=== PATIENT | female | born 1950 | race Caucasian/White ===

== ENCOUNTER 2017-03-08 12:16 | Observation (INO) | payer MEDICARE ==
[~2017-03-08] VITALS: Ht 157.5 cm; Wt 103.8 kg
--- NOTE | ~2017-03-08 | ST ---
PATIENT:BEL CANTU MEDICAL RECORD: [id number] SEX: F LOCATION:[address] ORDER #: ADMISSION DATE: 03/08/17 AGE OF PATIENT: 67 REFERRING PHYSICIAN: INTERPRETING PHYSICIAN: SRUTHI REILLY MD DATE OF SERVICE: 03/09/2017 PROCEDURE: Lexiscan nuclear stress test. INDICATIONS: Chest pain. DESCRIPTION OF PROCEDURE: The patient was brought into the nuclear lab where she was placed in supine position on the nuclear stress table. The patient then had a Lexiscan stress test administered via standard protocol. The patient was monitored appropriately, had no significant tachycardia or dysrhythmias during the test or after. The patient had no complaints of shortness of breath or chest pain. The patient completed the protocol. Nuclear infusion: The rest and stress test were done on the same day, she had 8.5 mCi sestamibi injected at rest and then 25.9 mCi sestamibi injected at stress. The SPECT imaging showed no significant areas of ischemia. Gated imaging revealed preserved left ventricular systolic function, ejection fraction 65%. IMPRESSION: This is a normal stress test with no evidence of significant ischemia. RECOMMENDATIONS: Continue medical management and aggressive secondary risk factor modification. If clinical symptoms persist, it may be reasonable to go further with the evaluation if no further explanations. TRANSINT:[id number] Voice Confirmation ID: [id number] DOCUMENT ID: [id number] 03/20/2017 Edited to correct date of service, dm. SRUTHI REILLY MD at 1353 CC: [id number] DICTATION DATE: 03/10/17 0743 SILVICULTURE PROFESSOR: 03/10/17 1401 DIS IN 03/09/17 [place] [place] [address]
--- NOTE | ~2017-03-08 | HP ---
PATIENT: BEL CANTU MEDICAL RECORD: [id number] ACCOUNT: [id number] LOCATION:[facility].2104 : 50 ADMISSION DATE: 03/08/17 HISTORY AND PHYSICAL EXAMINATION ADMITTING PHYSICIAN: Dr. Jesus Crowder. REASON FOR ADMISSION: Chest pain. HISTORY OF PRESENT ILLNESS: The patient is a 67-year-old obese female with history of hypertension and fibromyalgia. The patient states that she has been having trouble with fast and slow heart rates off and on for 5 years, but has never been "captured on the EKG." She did have an echo in 2015 that showed right atrial enlargement, but normal left atrial size and normal EF. She noticed Sunday evening from 5 until 9 p.m., she had some substernal chest discomfort. It did not radiate, was not associated with nausea, vomiting and diaphoresis and then went away. She simply took a Tylenol and she said they got better. She had an episode on Sunday and Sunday as well, lasting several hours and resolving. She came in today because she felt like she was flushed and she had more chest discomfort. She was evaluated by Dr. Farmer, who noticed she was quite hypertensive when she arrived with a blood pressure of 225/104 and rate of 114. She was in atrial fibrillation with uncontrolled rate. She did convert and when she did, she became bradycardic in the 40s and her blood pressure improved. Because of concern for tachybrady syndrome, the patient has now been admitted for further evaluation and control of her blood pressure. She also states since Thanksgiving 3 weeks ago, she has had some cough and congestion that has been nonproductive. She denies fever. PAST MEDICAL HISTORY: Essential hypertension, obesity, fibromyalgia. She had a TIA in 2014 with negative workup. That was a left MCA distribution. She was placed on Plavix at that time. She had an MRI on 10/18/2015 showing generalized atrophy, small vessel ischemic disease. History of muscle contraction headaches, lumbar radiculopathy on the right, possible peripheral neuropathy, hypothyroidism, depression. PAST SURGICAL HISTORY: She has had a laparoscopic cholecystectomy, SUNIL-BSO. ALLERGIES: GADOLINIUM, IODINE, PENICILLIN. FAMILY HISTORY: Father at 80 of lung cancer. He was a smoker and drinker. Mother at 77 from diabetes, hypothyroidism and hypertension. She has no siblings. MEDICATIONS: Her home medications are levothyroxine 0.112 mcg p.o. q.a.m., losartan 100 mg daily, ibuprofen 800 mg b.i.d. p.r.n. muscle pain, Cartia XT 120 mg p.o. daily, potassium chloride ER 8 mEq p.o. daily, Dulera 100 mcg HFA 2 puffs twice daily, clopidogrel 75 mg p.o. daily, and hydrochlorothiazide 12.5 mg p.o. daily. REVIEW OF SYSTEMS: GENERAL: She has been fatigued without fever. HEENT: No recent visual change, sinus congestion, or sore throat. She hears well. RESPIRATORY: She has had intermittent dry cough for 3 weeks that has been nonproductive. She denies hemoptysis. HISTORY AND PHYSICAL [id number] BEL CANTU CARDIAC: She has had substernal chest pain at rest, lasting several hours a day for the last 3 days. Associated with flushing of her cheeks, but no radicular pain, nausea or vomiting. GASTROINTESTINAL: No nausea, vomiting, change in stools or blood per rectum. GENITOURINARY: No dysuria or incontinence. GYNECOLOGIC: No vaginal bleeding. MUSCULOSKELETAL: She says she has generalized muscle pain, considered to be fibromyalgia type. She also had a history of lumbago with right-sided sciatica. INTEGUMENT: No rash or itching. PSYCHIATRIC: Admits to depressed mood intermittently, but no suicidal thoughts. PHYSICAL EXAMINATION: VITAL SIGNS: Temperature 97.4 Fahrenheit, pulse 114 and irregular, respirations were 19, blood pressure 225/104 initially, she was saturating 95% on room air. After converting to sinus rhythm, rate in the mid 40s and her pressure did improve, 145/71. GENERAL: The patient is alert and oriented and gives a good history. HEENT: Her eyes are clear. Pupils reactive. EOMI. Her face is flushed. NECK: Supple, without bruits or masses. CHEST: Distant breath sounds without wheeze or rales. HEART: Regular rate without MGR. PMI appropriate. BREASTS: Symmetrical. ABDOMEN: Morbidly obese, nontender with healed surgical scars. PELVIC: Deferred. EXTREMITIES: No CC&E. She has crepitation in her right knee to flexion and extension. Gait is normal. NEUROLOGICAL: Oriented to person, place, and time. Cranial nerves grossly intact. Gait normal. Has good memory and recall. LABORATORY DATA: Lab shows a white count of 8100 with H&H of 14 and 42.1, and platelet count of 150,000. D-dimer 0.44. Sodium 144, potassium 3.7, BUN and creatinine are 14 and 0.7, and glucose is 98. Liver functions are normal. Cardiac enzymes are normal. IMAGING STUDIES: Chest x-ray shows no acute process. Initial EKG showed atrial fibrillation with rapid ventricular response, T-wave inversion in lead III and F. No old EKG to compare. ASSESSMENT: 1. Atrial fibrillation with uncontrolled ventricular response. 2. Bradycardia, possible tachybrady syndrome. 3. Chest pain, etiology unknown. 4. Recent URI. 5. Obesity. 6. Hypothyroidism. 7. Fibromyalgia. 8. Uncontrolled hypertension. PLAN: The patient will be admitted for cardiac rehab nurse and recheck thyroid functions, serial cardiac enzymes, echocardiogram and cardiology consultation. TRANSINT:[id number] Voice Confirmation ID: [id number] DOCUMENT ID: [id number] HISTORY AND PHYSICAL [id number] BEL CANTU TIMOTHY MD at 1459 CC: [id number] DICTATION DATE: 03/08/171818 PIANO TECHNICIAN: 03/08/171933 DIS IN 03/09/17 [facility] [address] [place] [address]
--- NOTE | ~2017-03-08 | EC ---
PATIENT:EBL CANTU DATE OF SERVICE: 03/08/17 SEX: F MEDICAL RECORD: [id number] DATE OF : 50 LOCATION:[address] AGE OF PATIENT: 67 ADMISSION DATE: 03/08/17 REFERRING PHYSICIAN: INTERPRETING PHYSICIAN: SRUTHI REILLY MD ECHOCARDIOGRAM REPORT ECHO CHARGES 4 ECHO COMPLETE CLINICAL DIAGNOSIS: AFIB ECHOCARDIOGRAPHIC MEASUREMENTS (adult normal given) AC root (d.<3.7cm) 3.5 cm LV Septum d (<1.2 cm> 1.5 cm Valve Excursion 1.8 cm LV Septum (systole) 2.1 cm Left Atria (s.<4.0cm> 5.1 cm LVPW d(<1.2cm) 1.6 cm RV (d.<2.3cm) 3.9 cm LVPW (sytole) 2.1 cm LV diastole(<5.6CM) 4.7 cm MV E-F(>70mm/sec) cm LV systole 2.2 cm LVOT Diameter 1.6 cm MV exc.(>10mm) 1.5 cm Est.ejection fraction (50-75%) % Pericardial Effusion N DOPPLER: LVIT cm/sec A 78.0 cm/sec E 63.0 cm/sec LA cm/sec RVSP 25 mmHg LVOT 109 cm/sec AOP1/2T m/s Asc. Ao 178 cm/sec RVOT 97 cm/sec RA cm/sec PA 115 cm/sec AV Gradient Peak 12.74mmHg AV Mean 7.16 mmHg AV Area 1.5 cm MV Gradient Peak 4.23 mmHg MV Mean 1.52 mmHg MV Area cm COMMENTS: Campus Interviews Intern: 2 CAROLINA GASPAR Chauffeur: 4 Dr. Reilly TAPE# PACS DATE OF SERVICE: 03/09/2017 PROCEDURE: Transthoracic echocardiogram. FINDINGS: 1. Left ventricle has moderate concentric left ventricular hypertrophy with inflow characteristics consistent with diastolic dysfunction or elevated left ventricular end-diastolic pressures. 2. There is no regional wall motion abnormalities and the function is normal at 60% to 65%. ECHOCARDIOGRAM REPORT [id number] BEL CANTU 3. Left atrium is severely dilated at 5.1 cm. 4. The aortic valve is normal. Function normal structure. 5. The right ventricle has moderate dilatation with normal function. 6. The mitral valve normal function. 7. Tricuspid valve has mild tricuspid regurgitation with normal right ventricular systolic pressures. 8. Pulmonic valve is normal. CONCLUSIONS: The patient has evidence of hypertensive heart disease, diastolic dysfunction, and dilatation of the left atrial chamber as well as the right-sided chambers with no concomitant increase in pulmonary pressures for this evaluation. TRANSINT:[id number] Voice Confirmation ID: [id number] DOCUMENT ID: [id number] SRUTHI REILLY MD at 0722 CC: [id number] DICTATION DATE: 03/09/17 141 ELECTRIC TOOL REPAIRER: 03/09/17 1459 DIS IN 03/09/17 [facility] [address] [place] [address]
[2017-03-08 12:45] LABS: BASOPHILS 0.4 % (0-2); EOSINOPHILS 2.2 % (0-7); HEMATOCRIT 42.1 % (36.0-48.0); IMMATURE GRANULOCYTES 0.1 % (0-5); LYMPHOCYTES 19.8 % (15-50); MCH 30.2 pg (26.0-34.0); MCHC 33.3 g/dL (31.0-37.0); MCV 90.7 fL (80.0-100.0); MEAN PLATELET VOLUME 12.3 fL (7.4-10.4); MONOCYTES 8.2 % (2-11); NEUTROPHILS 69.3 % (40-80); PLATELET COUNT 150 10x3/uL (130-400); RBC 4.64 10x6/uL (4.00-5.40); RDW 14.5 % (11.5-14.5); WBC 8.1 10x3/uL (4.8-10.8)
[2017-03-08 13:06] LABS: ALBUMIN 3.9 g/dL (3.4-5.0); ALKALINE PHOSPHATASE 98 U/L (46-116); ALT (SGPT) 34 U/L (10-68); CALC OSMOLALITY 287 mosm/kg (275-300); CALCIUM 9.7 mg/dL (8.5-10.1); CARBON DIOXIDE 31.4 mmol/L (21.0-32.0); CHLORIDE - SERUM 105 mmol/L (98-107); CREATININE - SERUM 0.7 mg/dL (0.6-1.3); GLUCOSE 98 mg/dL (74-106); POTASSIUM - SERUM 3.7 mmol/L (3.5-5.1); PROTEIN - SERUM 7.4 g/dL (6.4-8.2); SODIUM 144 mmol/L (136-145); UREA NITROGEN 14 mg/dL (7-18); eGFR NON AFRICAN AMERICAN 88 mL/min (90-120)
[2017-03-08 13:17] LABS: CKMB 1.5 U/L (0.0-3.6); CREATINE KINASE 103 UL (21-215)
[2017-03-08 13:22] LABS: TROPONIN-I < 0.017 ng/mL (0.000-0.060)
[2017-03-08] MEDS ORDERED: TIROSINT13 MCG PO (18:16)
[2017-03-08] MEDS ORDERED: PLAVIX75 MG PO (18:17)
[2017-03-08] MEDS ORDERED: COZAAR100 MG PO (18:18)
[2017-03-08] MEDS ORDERED: CARTIA XT120 MG PO (18:19)
[2017-03-08] MEDS ORDERED: KLOR-CON 88 MEQ PO (18:20)
[2017-03-08 19:31] LABS: CKMB 1.4 U/L (0.0-3.6); CREATINE KINASE 40 UL (21-215)
[2017-03-08 19:34] LABS: TROPONIN-I 0.074 ng/mL (0.000-0.060)
[2017-03-08 20:18] VITALS: BP 169/59
[2017-03-09] VITALS (7 sets, daily range): BP systolic 130–180; BP diastolic 57–79; Ht 157.5 cm; Wt 103.8 kg
[2017-03-09 01:06] LABS: CREATINE KINASE 82 UL (21-215)
[2017-03-09 01:19] LABS: TROPONIN-I < 0.017 ng/mL (0.000-0.060)
[2017-03-09 06:24] LABS: CALC OSMOLALITY 281 mosm/kg (275-300); CALCIUM 9.2 mg/dL (8.5-10.1); CARBON DIOXIDE 28.7 mmol/L (21.0-32.0); CHLORIDE - SERUM 105 mmol/L (98-107); CREATINE KINASE 73 UL (21-215); CREATININE - SERUM 0.7 mg/dL (0.6-1.3); GLUCOSE 100 mg/dL (74-106); POTASSIUM - SERUM 3.7 mmol/L (3.5-5.1); SODIUM 141 mmol/L (136-145); T4 THYROXIN - FREE 1.22 ng/dL (0.76-1.46); THYROID STIMULATING HORMONE 0.42 uIU/mL (0.36-3.74); UREA NITROGEN 16 mg/dL (7-18); eGFR NON AFRICAN AMERICAN 88 mL/min (90-120)
[2017-03-09 06:25] LABS: TROPONIN-I < 0.017 ng/mL (0.000-0.060)
[2017-03-09] MEDS ORDERED: NITROQUICK0.4 MG SL (20:58)
== END 2017-03-09 21:26 | disposition home or self-care (01) ==
LOC: D.ER 12:16 → D.M2 16:29 → OBSVTIME 16:29 → D.M2 03-09 21:26
PROVIDERS: Family Medicine
DX: I48.91 Unspecified atrial fibrillation (principal); R07.9 Chest pain, unspecified; E66.01 Morbid (severe) obesity due to excess calories; Z68.41 Body mass index [BMI] 40.0-44.9, adult; I10 Essential (primary) hypertension; Z86.73 Personal history of transient ischemic attack (TIA), and cerebral infarction without residual deficits; E03.9 Hypothyroidism, unspecified; M79.7 Fibromyalgia

== ENCOUNTER 2017-06-29 19:52 | Emergency (ER) | payer MEDICARE ==
[2017-03-09 09:44] VITALS: BMI 42.3
[~2017-06-29 19:52] MED LIST: CARTIA XT120 MG PO; COZAAR100 MG PO; KLOR-CON 88 MEQ PO; NITROQUICK0.4 MG SL; PLAVIX75 MG PO; TIROSINT13 MCG PO
[2017-06-29 20:30] LABS: APPEARANCE CLEAR (CLEAR); BILIRUBIN NEGATIVE (NEGATIVE); COLOR YELLOW (YELLOW); GLUCOSE NEGATIVE (NEGATIVE); KETONE NEGATIVE (NEGATIVE); NITRITE NEGATIVE (NEGATIVE); PROTEIN NEGATIVE (NEGATIVE); UROBILINOGEN NORMAL (NORMAL)
[2017-06-29 20:41] LABS: BASOPHILS 0.5 % (0-2); EOSINOPHILS 2.6 % (0-7); HEMATOCRIT 42.2 % (36.0-48.0); HEMOGLOBIN 13.7 g/dL (12-16); IMMATURE GRANULOCYTES 0.2 % (0-5); LYMPHOCYTES 27.4 % (15-50); MCH 29.8 pg (26.0-34.0); MCHC 32.5 g/dL (31.0-37.0); MCV 91.9 fL (80.0-100.0); MEAN PLATELET VOLUME 13.6 fL (7.4-10.4); MONOCYTES 11.1 % (2-11); NEUTROPHILS 58.2 % (40-80); PLATELET COUNT 160 10x3/uL (130-400); RBC 4.59 10x6/uL (4.00-5.40); RDW 15.1 % (11.5-14.5); WBC 8.5 10x3/uL (4.8-10.8)
[2017-06-29 21:02] LABS: ANION GAP 13.7 mmol/L (8-16); BILIRUBIN - TOTAL 0.46 mg/dL (0.2-1.3); CALCIUM 9.1 mg/dL (8.5-10.1); CARBON DIOXIDE 28.9 mmol/L (21.0-32.0); CREATININE - SERUM 0.9 mg/dL (0.6-1.3); POTASSIUM - SERUM 3.6 mmol/L (3.5-5.1); PROTEIN - SERUM 7.5 g/dL (6.4-8.2)
== END 2017-06-29 22:34 | disposition home or self-care (01) ==
LOC: D.ER 19:52
PROVIDERS: Family Medicine
DX: M51.36 Other intervertebral disc degeneration, lumbar region (principal); M12.89 Other specific arthropathies, not elsewhere classified, multiple sites; M48.36 Traumatic spondylopathy, lumbar region; I10 Essential (primary) hypertension; R00.1 Bradycardia, unspecified

== ENCOUNTER 2017-08-28 13:50 | Observation (INO) | payer MEDICARE ==
[~2017-08-28] VITALS: Ht 157.5 cm; Wt 99.6 kg
--- NOTE | ~2017-08-28 | HP ---
PATIENT: BEL CANTU MEDICAL RECORD: [id number] ACCOUNT: [id number] LOCATION:[address] : 50 ADMISSION DATE: 08/28/17 HISTORY AND PHYSICAL EXAMINATION Admission History And Physical DATE OF ADMISSION: 08/28/2017 CHIEF COMPLAINT: Chest pain. HISTORY OF PRESENT ILLNESS: This is a 67-year-old female with a history of hypertension who had acute onset of chest pain last night, did not radiate to her jaw or either arm. She felt like she "ate a basketball" with the pain described as a pressure. She states she has had trouble with fast and slow heart rates off and on for 5 years, but it has never been captured on EKG." She had a TIA several years ago with negative work. She was found to have atrial fib versus flutter this morning and is now admitted for further evaluation. PAST MEDICAL AND SURGICAL HISTORY: Hypertension, TIA, hypothyroidism, and osteoarthritis. PAST SURGICAL HISTORY: Hysterectomy and cholecystectomy. DRUG ALLERGIES: PENICILLINS, ZINC, IODINE, ASPIRIN, CORN AND "MAN MADE SALT" HOME MEDICATIONS: Include potassium chloride 8 mEq once a day, losartan 100 mg once a day, levothyroxine 112 mcg once a day, nitroglycerin 0.4 sublingually p.r.n., Plavix 75 mg once a day, and diltiazem XT 120 once a day. HABITS: Never smoked, occasional wine. No illicit drug use. FAMILY HISTORY: Father at 80 of lung cancer. He was a smoker and drinker. Mother at 77 from diabetes. She had hypothyroidism and hypertension. The patient has no siblings. SOCIAL HISTORY: She is and lives with her cats. REVIEW OF SYSTEMS: GENERAL: No major weight changes. HEENT: No particular sinus or allergy problems. RESPIRATORY: She has had some asthma type symptoms in the past. CARDIAC: No known coronary disease. She has hypertension. GASTROINTESTINAL: She has dyspepsia at times. GENITOURINARY: No significant problems there. MUSCULOSKELETAL: She has fibromyalgia. NEUROLOGIC: No migraines. No seizures. PSYCHIATRIC: She has had some depression. PHYSICAL EXAMINATION: VITAL SIGNS: Temperature 99.7, pulse 85, respirations 19, blood pressure 129/79, O2 sat 96%. GENERAL: She is awake and alert, no acute distress, "I feel fine now." HEENT: Grossly within normal limits. NECK: Supple. No bruit. HISTORY AND PHYSICAL [id number] BEL CANTU MALGORZATA HEART: Regular rate and rhythm without murmur. LUNGS: Clear. ABDOMEN: Soft, flat, nontender. EXTREMITIES: No edema. LABORATORY DATA: CBC is normal. Basic metabolic panel is normal. Liver functions are normal. Troponin is normal. ProBNP 856. D-dimer elevated at 1.36. Chest x-ray shows nothing acute. Because of her elevated D-dimer and REPORTED ALLERGIES TO IODINE, she had a V/Q scan that was read as low probability for PE. ASSESSMENT: 1. Atrial flutter with variable block. 2. Hypertension. PLAN: Cardiology has been consulted. She is placed on telemetry. She is on a Cardizem drip at this time. Other tests or procedures as warranted. TRANSINT:[id number] Voice Confirmation ID: [id number] DOCUMENT ID: [id number] NICHO LEMA MD at 2319 CC: [id number] DICTATION DATE: 08/28/172032 LABORER DEMOLITION: 08/28/172235 ADM IN [place] [id number] [place] [address]
[2017-08-28 14:19] LABS: HEMATOCRIT 40.2 % (36.0-48.0); HEMOGLOBIN 13.4 g/dL (12-16); MCH 28.7 pg (26.0-34.0); MCHC 33.3 g/dL (31.0-37.0); MCV 86.1 fL (80.0-100.0); MEAN PLATELET VOLUME 12.6 fL (7.4-10.4); PLATELET COUNT 136 10x3/uL (130-400); RBC 4.67 10x6/uL (4.00-5.40); RDW 15.3 % (11.5-14.5); WBC 6.1 10x3/uL (4.8-10.8)
[2017-08-28 14:47] LABS: ALBUMIN 3.4 g/dL (3.4-5.0); ALKALINE PHOSPHATASE 95 U/L (46-116); ALT (SGPT) 27 U/L (10-68); CALC OSMOLALITY 281 mosm/kg (275-300); CALCIUM 9.2 mg/dL (8.5-10.1); CHLORIDE - SERUM 106 mmol/L (98-107); CREATININE - SERUM 0.8 mg/dL (0.6-1.3); GLUCOSE 103 mg/dL (74-106); POTASSIUM - SERUM 4.6 mmol/L (3.5-5.1); PROTEIN - SERUM 7.9 g/dL (6.4-8.2); SODIUM 142 mmol/L (136-145); UREA NITROGEN 10 mg/dL (7-18); eGFR NON AFRICAN AMERICAN 76 mL/min (90-120)
[2017-08-28 14:59] LABS: CKMB 0.3 U/L (0.0-3.6); CREATINE KINASE 94 UL (21-215); PRO BNP 856 pg/mL (0-125); TROPONIN-I < 0.017 ng/mL (0.000-0.060)
[2017-08-28 15:52] LABS: LYMPHOCYTES 64 % (15-50); MONOCYTES 6 % (2-11); NEUTROPHILS 30 % (40-80); PLATELET ESTIMATE NORMAL
[2017-08-28 18:28] VITALS: BP 117/66
[2017-08-28 20:09] VITALS: BP 129/79
[2017-08-28 20:27] VITALS: BMI 47.7
[2017-08-29] VITALS (7 sets, daily range): BP systolic 96–139; BP diastolic 43–84; Ht 157.5 cm; Wt 99.6 kg
[2017-08-29 05:55] LABS: BASOPHILS 0.2 % (0-2); EOSINOPHILS 0.7 % (0-7); HEMATOCRIT 39.3 % (36.0-48.0); HEMOGLOBIN 12.9 g/dL (12-16); IMMATURE GRANULOCYTES 0.2 % (0-5); LYMPHOCYTES 63.1 % (15-50); MCH 28.8 pg (26.0-34.0); MCHC 32.8 g/dL (31.0-37.0); MCV 87.7 fL (80.0-100.0); MONOCYTES 15.4 % (2-11); NEUTROPHILS 20.4 % (40-80); PLATELET COUNT 135 10x3/uL (130-400); RBC 4.48 10x6/uL (4.00-5.40); RDW 15.3 % (11.5-14.5)
[2017-08-29 06:14] LABS: WBC 4.3 10x3/uL (4.8-10.8)
[2017-08-29 06:25] LABS: CALC OSMOLALITY 283 mosm/kg (275-300); CALCIUM 8.7 mg/dL (8.5-10.1); CARBON DIOXIDE 27.3 mmol/L (21.0-32.0); CHLORIDE - SERUM 105 mmol/L (98-107); CREATININE - SERUM 0.8 mg/dL (0.6-1.3); GLUCOSE 101 mg/dL (74-106); SODIUM 143 mmol/L (136-145); THYROID STIMULATING HORMONE 0.34 uIU/mL (0.36-3.74); UREA NITROGEN 11 mg/dL (7-18); eGFR NON AFRICAN AMERICAN 76 mL/min (90-120)
[2017-08-29 06:30] LABS: POTASSIUM - SERUM 3.4 mmol/L (3.5-5.1)
[2017-08-30 04:56] VITALS: BP 85/58
[2017-08-30 08:40] VITALS: BP 125/63
[2017-08-30 12:11] VITALS: BP 136/71
[2017-08-30 17:27] VITALS: BP 108/78
[2017-08-30 20:38] VITALS: BP 135/71
[2017-08-31 00:36] VITALS: BP 111/50
[2017-08-31 05:31] VITALS: BP 104/53
[2017-08-31 07:00] VITALS: BP 154/76
[2017-08-31 12:31] VITALS: BP 136/70
[2017-08-31] MEDS ORDERED: BETAPACE 80 MG80 MG PO (13:56)
[2017-08-31] MEDS ORDERED: COZAAR50 MG PO (13:56)
== END 2017-08-31 16:16 | disposition home or self-care (01) ==
LOC: D.ER 13:50 → D.EDHOLD 16:22 → OBSVTIME 16:22 → D.M2 18:30
PROVIDERS: Family Medicine
DX: I48.91 Unspecified atrial fibrillation (principal); I48.92 Unspecified atrial flutter; I10 Essential (primary) hypertension; E03.9 Hypothyroidism, unspecified; M19.90 Unspecified osteoarthritis, unspecified site; Z86.73 Personal history of transient ischemic attack (TIA), and cerebral infarction without residual deficits

== ENCOUNTER 2017-09-23 09:41 | Emergency (ER) | payer MEDICARE ==
[~2017-09-23] VITALS: Ht 157.5 cm; Wt 101.6 kg
[~2017-09-23 09:41] MED LIST changes: +BETAPACE 80 MG80 MG PO; +COZAAR50 MG PO
[2017-09-23 09:56] VITALS: Ht 157.5 cm; Wt 101.6 kg
[2017-09-23 10:14] LABS: BASOPHILS 0.2 % (0-2); EOSINOPHILS 2.2 % (0-7); HEMATOCRIT 40.8 % (36.0-48.0); HEMOGLOBIN 13.3 g/dL (12-16); IMMATURE GRANULOCYTES 0.1 % (0-5); MCH 28.9 pg (26.0-34.0); MCHC 32.6 g/dL (31.0-37.0); MCV 88.7 fL (80.0-100.0); MEAN PLATELET VOLUME 13.1 fL (7.4-10.4); MONOCYTES 12.5 % (2-11); PLATELET COUNT 149 10x3/uL (130-400); RDW 14.5 % (11.5-14.5)
[2017-09-23 10:37] LABS: ALBUMIN 3.6 g/dL (3.4-5.0); ALKALINE PHOSPHATASE 82 U/L (46-116); ALT (SGPT) 25 U/L (10-68); BILIRUBIN - TOTAL 0.63 mg/dL (0.2-1.3); CALC OSMOLALITY 284 mosm/kg (275-300); CALCIUM 9.1 mg/dL (8.5-10.1); CARBON DIOXIDE 27.6 mmol/L (21.0-32.0); CHLORIDE - SERUM 107 mmol/L (98-107); CREATININE - SERUM 0.8 mg/dL (0.6-1.3); GLUCOSE 107 mg/dL (74-106); POTASSIUM - SERUM 3.9 mmol/L (3.5-5.1); PROTEIN - SERUM 7.6 g/dL (6.4-8.2); SODIUM 142 mmol/L (136-145); UREA NITROGEN 18 mg/dL (7-18); eGFR NON AFRICAN AMERICAN 76 mL/min (90-120)
[2017-09-23 10:45] LABS: LIPASE 113 U/L (73-393); MAGNESIUM - SERUM 2.1 mg/dL (1.8-2.4); PRO BNP 279 pg/mL (0-125); TROPONIN-I < 0.017 ng/mL (0.000-0.060)
[2017-09-23] MEDS ORDERED: ATIVAN0.5 MG PO (11:47)
[2017-09-23 13:25] VITALS: BP 147/73
== END 2017-09-23 13:26 | disposition home or self-care (01) ==
LOC: D.ER 09:41
PROVIDERS: Family Medicine
DX: R07.89 Other chest pain (principal); R00.1 Bradycardia, unspecified

== ENCOUNTER 2017-12-03 07:11 | Emergency (ER) | payer MEDICARE ==
[~2017-12-03] VITALS: Ht 157.5 cm; Wt 98.0 kg
[~2017-12-03 07:11] MED LIST changes: +ATIVAN0.5 MG PO
[2017-12-03 07:16] VITALS: Ht 157.5 cm; Wt 98.0 kg
[2017-12-03 08:15] LABS: APPEARANCE CLEAR (CLEAR); BILIRUBIN NEGATIVE (NEGATIVE); COLOR YELLOW (YELLOW); GLUCOSE NEGATIVE (NEGATIVE); KETONE NEGATIVE (NEGATIVE); NITRITE NEGATIVE (NEGATIVE); PROTEIN NEGATIVE (NEGATIVE); SPECIFIC GRAVITY 1.015 (1.005-1.020); UROBILINOGEN NORMAL (NORMAL)
[2017-12-03 08:19] LABS: BASOPHILS 0.2 % (0-2); EOSINOPHILS 1.2 % (0-7); HEMATOCRIT 40.9 % (36.0-48.0); HEMOGLOBIN 13.7 g/dL (12-16); IMMATURE GRANULOCYTES 0.2 % (0-5); LYMPHOCYTES 20.8 % (15-50); MCH 28.1 pg (26.0-34.0); MCHC 33.5 g/dL (31.0-37.0); MEAN PLATELET VOLUME 12.5 fL (7.4-10.4); MONOCYTES 9.4 % (2-11); NEUTROPHILS 68.2 % (40-80); RBC 4.87 10x6/uL (4.00-5.40); RDW 15.3 % (11.5-14.5); WBC 9.9 10x3/uL (4.8-10.8)
[2017-12-03 08:20] LABS: PLATELET COUNT 209 10x3/uL (130-400)
[2017-12-03 08:31] LABS: ANION GAP 13.7 mmol/L (8-16); BILIRUBIN - TOTAL 0.47 mg/dL (0.2-1.3); CALCIUM 8.6 mg/dL (8.5-10.1); CARBON DIOXIDE 25.4 mmol/L (21.0-32.0); CREATININE - SERUM 0.9 mg/dL (0.6-1.3); POTASSIUM - SERUM 3.1 mmol/L (3.5-5.1); PROTEIN - SERUM 7.2 g/dL (6.4-8.2)
[2017-12-03] MEDS ORDERED: MEDROL DOSE PACK4 MG PO (09:31)
[2017-12-03] MEDS ORDERED: KEFLEX500 MG PO (09:31)
[2017-12-03 10:25] VITALS: BP 173/070
== END 2017-12-03 11:06 | disposition home or self-care (01) ==
LOC: D.ER 07:11
PROVIDERS: Family Medicine
DX: J06.9 Acute upper respiratory infection, unspecified (principal); R53.83 Other fatigue; R50.9 Fever, unspecified; E87.6 Hypokalemia; R53.81 Other malaise; H92.02 Otalgia, left ear; H66.92 Otitis media, unspecified, left ear; R09.89 Other specified symptoms and signs involving the circulatory and respiratory systems; R53.1 Weakness; Z86.73 Personal history of transient ischemic attack (TIA), and cerebral infarction without residual deficits

== ENCOUNTER 2017-12-12 10:33 | Inpatient (IN) | payer MEDICARE ==
[~2017-12-12] VITALS: Ht 157.5 cm; Wt 94.1 kg
[~2017-12-12 10:33] MED LIST changes: +KEFLEX500 MG PO; +MEDROL DOSE PACK4 MG PO; +SYNTHROID100 MCG PO; -TIROSINT13 MCG PO
[2017-12-12 10:58] LABS: HEMATOCRIT 47.7 % (36.0-48.0); HEMOGLOBIN 15.7 g/dL (12-16); MCH 28.1 pg (26.0-34.0); MCHC 32.9 g/dL (31.0-37.0); MCV 85.5 fL (80.0-100.0); MEAN PLATELET VOLUME 12.6 fL (7.4-10.4); PLATELET COUNT 260 10x3/uL (130-400); RBC 5.58 10x6/uL (4.00-5.40); RDW 16.2 % (11.5-14.5); WBC 20.5 10x3/uL (4.8-10.8)
[2017-12-12 11:15] LABS: BASOPHILS 1 % (0-2); LYMPHOCYTES 18 % (15-50); MONOCYTES 4 % (2-11); NEUTROPHILS 77 % (40-80); PLATELET ESTIMATE NORMAL
[2017-12-12 11:31] LABS: ALBUMIN 3.3 g/dL (3.4-5.0); ALKALINE PHOSPHATASE 68 U/L (46-116); ALT (SGPT) 17 U/L (10-68); BILIRUBIN - TOTAL 1.32 mg/dL (0.2-1.3); CALC OSMOLALITY 281 mosm/kg (275-300); CALCIUM 9.2 mg/dL (8.5-10.1); CARBON DIOXIDE 28.1 mmol/L (21.0-32.0); CHLORIDE - SERUM 102 mmol/L (98-107); GLUCOSE 145 mg/dL (74-106); POTASSIUM - SERUM 3.8 mmol/L (3.5-5.1); PROTEIN - SERUM 6.6 g/dL (6.4-8.2); SODIUM 139 mmol/L (136-145); UREA NITROGEN 16 mg/dL (7-18); eGFR NON AFRICAN AMERICAN 58 mL/min (90-120)
[2017-12-12 11:38] LABS: CKMB 0.1 U/L (0.0-3.6); CREATINE KINASE 29 UL (21-215); PRO BNP 402 pg/mL (0-125)
[2017-12-12 11:44] LABS: TROPONIN-I < 0.017 ng/mL (0.000-0.060)
[2017-12-12] MEDS ORDERED: BETAPACE 80 MG80 MG PO (16:21)
[2017-12-12 16:38] VITALS: BP 123/58; BMI 38.8
[2017-12-12 21:13] VITALS: BP 146/70
[2017-12-13 01:25] VITALS: BP 115/70
[2017-12-13 05:43] LABS: BASOPHILS 0.1 % (0-2); EOSINOPHILS 0.2 % (0-7); HEMATOCRIT 47.7 % (36.0-48.0); HEMOGLOBIN 15.8 g/dL (12-16); IMMATURE GRANULOCYTES 0.4 % (0-5); LYMPHOCYTES 17.2 % (15-50); MCH 28.1 pg (26.0-34.0); MCHC 33.1 g/dL (31.0-37.0); MCV 84.9 fL (80.0-100.0); MEAN PLATELET VOLUME 13.2 fL (7.4-10.4); MONOCYTES 11.3 % (2-11); NEUTROPHILS 70.8 % (40-80); RBC 5.62 10x6/uL (4.00-5.40); RDW 16.3 % (11.5-14.5); WBC 18.6 10x3/uL (4.8-10.8)
[2017-12-13 05:50] LABS: PLATELET COUNT 194 10x3/uL (130-400)
[2017-12-13 05:52] LABS: ANION GAP 10.9 mmol/L (8-16); CARBON DIOXIDE 27.4 mmol/L (21.0-32.0); CREATININE - SERUM 1.1 mg/dL (0.6-1.3); POTASSIUM - SERUM 3.3 mmol/L (3.5-5.1)
[2017-12-13 06:07] VITALS: BP 99/71
[2017-12-13 17:05] VITALS: BP 111/58
[2017-12-13 20:58] VITALS: BP 99/60
[2017-12-14] VITALS: BP 87/54
[2017-12-14 05:22] VITALS: BP 148/49
[2017-12-14 06:50] LABS: ANION GAP 10.6 mmol/L (8-16); CALCIUM 8.8 mg/dL (8.5-10.1); CARBON DIOXIDE 27.2 mmol/L (21.0-32.0); CREATININE - SERUM 0.9 mg/dL (0.6-1.3); POTASSIUM - SERUM 3.8 mmol/L (3.5-5.1)
[2017-12-14 07:27] LABS: BASOPHILS 0.1 % (0-2); EOSINOPHILS 0.2 % (0-7); HEMATOCRIT 44.1 % (36.0-48.0); HEMOGLOBIN 14.6 g/dL (12-16); IMMATURE GRANULOCYTES 0.4 % (0-5); LYMPHOCYTES 14.2 % (15-50); MCH 27.9 pg (26.0-34.0); MCHC 33.1 g/dL (31.0-37.0); MCV 84.3 fL (80.0-100.0); MEAN PLATELET VOLUME 12.8 fL (7.4-10.4); MONOCYTES 11.9 % (2-11); NEUTROPHILS 73.2 % (40-80); PLATELET COUNT 185 10x3/uL (130-400); RBC 5.23 10x6/uL (4.00-5.40); RDW 16.1 % (11.5-14.5); WBC 17.5 10x3/uL (4.8-10.8)
[2017-12-14 08:30] VITALS: BP 95/61
[2017-12-14 11:51] VITALS: BP 94/52
[2017-12-14 16:06] VITALS: BP 100/58
[2017-12-14 20:00] VITALS: BP 109/55
[2017-12-15 04:59] VITALS: BP 107/49
[2017-12-15 07:08] LABS: BASOPHILS 0.2 % (0-2); EOSINOPHILS 0.3 % (0-7); HEMATOCRIT 40.1 % (36.0-48.0); HEMOGLOBIN 13.3 g/dL (12-16); IMMATURE GRANULOCYTES 0.3 % (0-5); LYMPHOCYTES 13.2 % (15-50); MCH 27.8 pg (26.0-34.0); MCHC 33.2 g/dL (31.0-37.0); MCV 83.9 fL (80.0-100.0); MEAN PLATELET VOLUME 13.6 fL (7.4-10.4); MONOCYTES 12.1 % (2-11); NEUTROPHILS 73.9 % (40-80); PLATELET COUNT 201 10x3/uL (130-400); RBC 4.78 10x6/uL (4.00-5.40); RDW 16.4 % (11.5-14.5); WBC 18.1 10x3/uL (4.8-10.8)
[2017-12-15 07:27] LABS: ANION GAP 11.6 mmol/L (8-16); CALCIUM 8.9 mg/dL (8.5-10.1); CARBON DIOXIDE 25.3 mmol/L (21.0-32.0); CREATININE - SERUM 0.9 mg/dL (0.6-1.3); POTASSIUM - SERUM 3.9 mmol/L (3.5-5.1); T4 THYROXIN - FREE 1.27 ng/dL (0.76-1.46); THYROID STIMULATING HORMONE 0.57 uIU/mL (0.36-3.74)
[2017-12-15 10:01] VITALS: BP 140/59
[2017-12-15 11:36] VITALS: BP 96/52
[2017-12-15 16:00] VITALS: BP 102/55
[2017-12-15 21:10] VITALS: BP 100/65
[2017-12-16 05:13] VITALS: BP 99/69
[2017-12-16 06:11] LABS: BASOPHILS 0.1 % (0-2); EOSINOPHILS 0.3 % (0-7); HEMATOCRIT 43.1 % (36.0-48.0); HEMOGLOBIN 14.6 g/dL (12-16); IMMATURE GRANULOCYTES 0.3 % (0-5); LYMPHOCYTES 15.8 % (15-50); MCH 28.6 pg (26.0-34.0); MCHC 33.9 g/dL (31.0-37.0); MCV 84.5 fL (80.0-100.0); MEAN PLATELET VOLUME 12.8 fL (7.4-10.4); MONOCYTES 9.8 % (2-11); NEUTROPHILS 73.7 % (40-80); PLATELET COUNT 220 10x3/uL (130-400); RDW 16.5 % (11.5-14.5)
[2017-12-16 06:28] LABS: CALCIUM 9.3 mg/dL (8.5-10.1); CARBON DIOXIDE 28.5 mmol/L (21.0-32.0); POTASSIUM - SERUM 3.5 mmol/L (3.5-5.1)
[2017-12-16 20:00] VITALS: BP 118/52
[2017-12-17] VITALS: BP 108/60
[2017-12-17 04:00] VITALS: BP 100/70
[2017-12-17 05:33] LABS: BASOPHILS 0.2 % (0-2); EOSINOPHILS 1.2 % (0-7); HEMATOCRIT 38.9 % (36.0-48.0); IMMATURE GRANULOCYTES 0.3 % (0-5); LYMPHOCYTES 20.2 % (15-50); MCH 27.8 pg (26.0-34.0); MCHC 33.4 g/dL (31.0-37.0); MCV 83.3 fL (80.0-100.0); MEAN PLATELET VOLUME 12.9 fL (7.4-10.4); MONOCYTES 8.8 % (2-11); NEUTROPHILS 69.3 % (40-80); PLATELET COUNT 189 10x3/uL (130-400); RBC 4.67 10x6/uL (4.00-5.40); RDW 16.6 % (11.5-14.5)
[2017-12-17 05:40] LABS: WBC 11.5 10x3/uL (4.8-10.8)
[2017-12-17 05:51] LABS: CALC OSMOLALITY 278 mosm/kg (275-300); CALCIUM 8.8 mg/dL (8.5-10.1); CARBON DIOXIDE 26.9 mmol/L (21.0-32.0); CHLORIDE - SERUM 103 mmol/L (98-107); CREATININE - SERUM 0.8 mg/dL (0.6-1.3); GLUCOSE 99 mg/dL (74-106); POTASSIUM - SERUM 3.6 mmol/L (3.5-5.1); SODIUM 138 mmol/L (136-145); UREA NITROGEN 22 mg/dL (7-18); eGFR NON AFRICAN AMERICAN 76 mL/min (90-120)
[2017-12-17 08:38] VITALS: BP 121/70
[2017-12-17 12:15] VITALS: BP 85/59
[2017-12-17 15:59] VITALS: BP 90/65
[2017-12-17 21:24] VITALS: BP 125/95
[2017-12-18] VITALS: BP 98/76
[2017-12-18 04:44] VITALS: BP 127/61
[2017-12-18 05:45] LABS: BASOPHILS 0.3 % (0-2); EOSINOPHILS 1.7 % (0-7); HEMATOCRIT 39.8 % (36.0-48.0); HEMOGLOBIN 12.8 g/dL (12-16); IMMATURE GRANULOCYTES 0.2 % (0-5); MCH 27.6 pg (26.0-34.0); MCHC 32.2 g/dL (31.0-37.0); MEAN PLATELET VOLUME 12.5 fL (7.4-10.4); MONOCYTES 9.4 % (2-11); NEUTROPHILS 67.4 % (40-80); PLATELET COUNT 181 10x3/uL (130-400); RBC 4.64 10x6/uL (4.00-5.40); RDW 16.9 % (11.5-14.5); WBC 9.3 10x3/uL (4.8-10.8)
[2017-12-18 05:57] LABS: ANION GAP 7.6 mmol/L (8-16); CALCIUM 8.5 mg/dL (8.5-10.1); CARBON DIOXIDE 31.3 mmol/L (21.0-32.0); CREATININE - SERUM 0.9 mg/dL (0.6-1.3); POTASSIUM - SERUM 3.9 mmol/L (3.5-5.1)
[2017-12-18 06:16] LABS: MCV 85.8 fL (80.0-100.0)
[2017-12-18 07:30] VITALS: BP 125/91
[2017-12-18 11:00] VITALS: BP 99/63
[2017-12-18 13:44] VITALS: Ht 157.5 cm; Wt 94.1 kg
[2017-12-18 15:00] VITALS: BP 99/54
[2017-12-18 20:00] VITALS: BP 140/77
[2017-12-19] VITALS: BP 110/78
[2017-12-19 06:37] VITALS: BP 109/64
[2017-12-19 06:53] LABS: BASOPHILS 0.5 % (0-2); EOSINOPHILS 2.1 % (0-7); HEMATOCRIT 39.4 % (36.0-48.0); HEMOGLOBIN 12.8 g/dL (12-16); IMMATURE GRANULOCYTES 0.1 % (0-5); LYMPHOCYTES 27.8 % (15-50); MCH 27.9 pg (26.0-34.0); MCHC 32.5 g/dL (31.0-37.0); MEAN PLATELET VOLUME 12.6 fL (7.4-10.4); MONOCYTES 8.9 % (2-11); NEUTROPHILS 60.6 % (40-80); PLATELET COUNT 179 10x3/uL (130-400); RBC 4.58 10x6/uL (4.00-5.40); RDW 16.9 % (11.5-14.5); WBC 8.2 10x3/uL (4.8-10.8)
[2017-12-19 07:02] LABS: CALC OSMOLALITY 282 mosm/kg (275-300); CALCIUM 8.7 mg/dL (8.5-10.1); CARBON DIOXIDE 27.6 mmol/L (21.0-32.0); CHLORIDE - SERUM 108 mmol/L (98-107); CREATININE - SERUM 0.8 mg/dL (0.6-1.3); GLUCOSE 92 mg/dL (74-106); SODIUM 141 mmol/L (136-145); UREA NITROGEN 18 mg/dL (7-18); eGFR NON AFRICAN AMERICAN 76 mL/min (90-120)
[2017-12-19 09:00] VITALS: BP 110/53
[2017-12-19 11:02] VITALS: BP 126/75
[2017-12-19 15:39] VITALS: BP 102/43
[2017-12-19 20:00] VITALS: BP 113/66
[2017-12-20 04:00] VITALS: BP 104/66
[2017-12-20 06:29] LABS: BASOPHILS 0.3 % (0-2); EOSINOPHILS 2.2 % (0-7); HEMATOCRIT 39.7 % (36.0-48.0); HEMOGLOBIN 12.8 g/dL (12-16); IMMATURE GRANULOCYTES 0.4 % (0-5); LYMPHOCYTES 27.4 % (15-50); MCH 27.5 pg (26.0-34.0); MCHC 32.2 g/dL (31.0-37.0); MCV 85.4 fL (80.0-100.0); MEAN PLATELET VOLUME 12.3 fL (7.4-10.4); MONOCYTES 8.7 % (2-11); PLATELET COUNT 179 10x3/uL (130-400); RBC 4.65 10x6/uL (4.00-5.40); RDW 16.8 % (11.5-14.5); WBC 7.3 10x3/uL (4.8-10.8)
[2017-12-20 06:38] LABS: CALC OSMOLALITY 281 mosm/kg (275-300); CALCIUM 8.6 mg/dL (8.5-10.1); CARBON DIOXIDE 32.2 mmol/L (21.0-32.0); CHLORIDE - SERUM 106 mmol/L (98-107); CREATININE - SERUM 0.8 mg/dL (0.6-1.3); GLUCOSE 91 mg/dL (74-106); POTASSIUM - SERUM 4.2 mmol/L (3.5-5.1); SODIUM 141 mmol/L (136-145); UREA NITROGEN 15 mg/dL (7-18); eGFR NON AFRICAN AMERICAN 76 mL/min (90-120)
[2017-12-20 09:03] VITALS: BP 109/95
[2017-12-20 11:04] VITALS: BP 154/49
== END 2017-12-20 16:51 | disposition home or self-care (01) | DRG 194 ==
LOC: D.ER 10:33 → D.M2 12:49 → D.EDHOLD 12:49 → D.M2 14:27
PROVIDERS: Emergency Medicine; Family Medicine
DX: J18.9 Pneumonia, unspecified organism (principal); J90 Pleural effusion, not elsewhere classified; I48.91 Unspecified atrial fibrillation; E03.9 Hypothyroidism, unspecified; Z86.73 Personal history of transient ischemic attack (TIA), and cerebral infarction without residual deficits

== ENCOUNTER 2017-12-30 13:17 | Inpatient (IN) | payer MEDICARE ==
[~2017-12-30] VITALS: Ht 157.5 cm; Wt 84.4 kg
--- NOTE | ~2017-12-30 | MORECARE ---
CASE MANAGEMENT DISCHARGE SUMMARY PATIENT: BEL CANTU UNIT: [id number] ADM DATE: 12/30/17 AGE: 67 : 50 SEX: F ROOM/BED: D.2625 AUTHOR: JOSE,DOC PHYSICIAN: REFERRING PHYSICIAN: NICHO LEMA MD DATE OF SERVICE: 12/30/17 Discharge Plan Patient Name: BEL CANTU Facility: [facility]:[place] : 1950 Planned Disposition: Home Anticipated Discharge Date: 01/01/18 Discharge Date: Expected LOS: 2 Initial Reviewer: [email or web address] Initial Review Date: 12/30/2017 Generated: 12/30/17 7:07 pm DCP- Discharge Planning Updated by [email or web address]: Gertrude Mayfield on 12/30/17 5:[address] Patient Name: BEL CANTU Admission Status: ER Accout number: [id number] Admission Date: 12-30-2017 : 1950 Admission Diagnosis: Attending: NICHO LEMA Current LOS: 1 Anticipated DC Date: 01-01-2018 Planned Disposition: Home Primary Insurance: MEDICARE A & B Discharge Planning Comments: CM met with patient to complete initial dc planning assessment. CM educated patient on the CM role and verbal consent given by patient to complete assessment. Patient lives at home alone and reports she is independent at home but has become weak due to being sick. CM discussed rehab versus home health at discharge since she is a readmission. Patient stated rehab is out of the question because she has cats and a dog and nobody to take care of them. The last sitter for her pets almost killed them. At discharge patient plans to return home alone and feels this is a safe discharge. She will think about home health. CM will continue to follow and will assist as needed with dc plans/needs. See below for more assessment information. Is the patient Alert and Oriented? Yes * How many steps to enter\exit or inside your home? 4 * PCP Dr. Lema * [facility] * Preadmission Environment Home Alone * ADLs Independent * Equipment Crutch * List name and contact numbers for known caregivers / representatives who currently or will assist patient after discharge: She does not have anyone that will be able to help her at home after discharge. * Community resources currently utilized None * Additional services required to return to the preadmission environment? Yes * Can the patient safely return to the preadmission environment? Yes * Has this patient been hospitalized within the prior 30 days at any hospital? Yes Strategy Associate: Gertrude Mayfield DCPIA - Discharge Planning Initial Assessment Updated by [id number]: Gertrude Mayfield on 12/30/17 5:51 pm * Is the patient Alert and Oriented? Yes * How many steps to enter\exit or inside your home? * PCP Dr. Lema * Pharmacy [facility] * Preadmission Environment Home Alone * ADLs Independent * Equipment Crutch * List name and contact numbers for known caregivers / representatives who currently or will assist patient after discharge: She does not have anyone that will be able to help her at home after discharge * Community resources currently utilized None * Additional services required to return to the preadmission environment? Yes * Can the patient safely return to the preadmission environment? Yes * Has this patient been hospitalized within the prior 30 days at any hospital? Yes Last DP export: 12/30/17 4:53 Patient Name: BEL CANTU Page [id number] at 1807 All edits/amendments must be made on the electronic document DICTATION DATE: 12/30/171805 DIRECTOR OF KNOWLEDGE MANAGEMENT: BRYANT 12/30/171805 RPT#: [id number] DC DATE: STATUS: ADM IN [facility] [address] [place] [address] END OF REPORT
--- NOTE | ~2017-12-30 | HP ---
PATIENT: BEL CANTU MEDICAL RECORD: [id number] ACCOUNT: [id number] LOCATION:[address] : 50 ADMISSION DATE: 12/30/17 PCP: NICHO CROWDER MD HISTORY AND PHYSICAL EXAMINATION ADMITTING PHYSICIAN: Nicho Crowder MD (Bill) REASON FOR ADMISSION: Increasing shortness of breath, cough, and chills. HISTORY OF PRESENT ILLNESS: The patient is a 67-year-old female, nonsmoker, who states she had pneumonia and was admitted on December 12 of this year. She was treated with pulmonary updrafts and IV Levaquin. Her chest x-ray at discharge showed improving left lower lobe infiltrate and small effusion. She said she felt better until the cold snap a few days ago and started getting more cough and more shortness of breath. She has had pain when she would cough such that she would almost vomit. She then noticed some chills in the last 24 hours, but no documented fever. For this reason, she came to the Emergency Room. PAST MEDICAL HISTORY: Recent left lower lobe pneumonia, community acquired; history of atrial flutter with variable block in August of 2017, bradycardia with borderline sick sinus syndrome, hypertension, TIA, hypothyroidism, osteoarthritis, postmenopausal, and posthysterectomy. Echocardiogram in 2017 showing LVH with diastolic dysfunction and EF of 60% to 65%. PAST SURGICAL HISTORY: Hysterectomy and cholecystectomy. ALLERGIES: PENICILLIN, IODINE, ZINC, ASPIRIN, CHLORINE, AND MAN MADE SALT. HABITS: Never smoked. She has occasional wine. No illicit drug use. FAMILY HISTORY: Father at 80 of lung cancer, he was a smoker. Mother at 77 from diabetes. She had hypothyroidism and hypertension. She is an only child. She is and lives with her cats. HOME MEDICATIONS: Plavix 75 mg p.o. daily, Betapace 80 mg p.o. b.i.d., Motrin 800 mg p.o. b.i.d. p.r.n. musculoskeletal pain, and Ativan 0.5 mg p.o. b.i.d. p.r.n. anxiety. REVIEW OF SYSTEMS: GENERAL: Subjective chills and fatigue. No fever documented. HEENT: No recent headache, sinus congestion, sore throat, or hearing difficulty. RESPIRATORY: Increasing shortness of breath with cough productive of foamy and slightly yellow-tinged sputum. She has coughed so hard she has actually vomited. GASTROINTESTINAL: Nausea with some vomiting as mentioned. No recent diarrhea. She is post-cholecystectomy. No history of hepatitis. ENDOCRINE: Denies polyuria, polydipsia, heat or cold intolerance. NEUROLOGIC: No history of stroke. She has remote history of TIA. No vascular headaches. INTEGUMENT: No rash or itching. PSYCHIATRIC: Denies depressed mood. MUSCULOSKELETAL: Intermittent lumbago without sciatica. HISTORY AND PHYSICAL [id number] BEL CANTU PHYSICAL EXAMINATION: VITAL SIGNS: Pulse is 59-60 and regular, respirations are 18, blood pressure 120/78, satting 95% on room air, and temperature 98.2. HEENT: Normocephalic. Eyes are clear. Pupils are reactive. NECK: No bruits or masses. CHEST: Distant breath sounds with faint wheeze in the upper lobes. She does have E to A in the left base. No retractions noted. HEART: Regular rate. ABDOMEN: Mildly obese and soft. EXTREMITIES: No gross edema. NEUROLOGICAL: Oriented to person, place, and time. Cranial nerves grossly intact. Motor grossly intact. Gait was not tested. LABORATORY DATA: Labs show white count of 13.9 thousand with left shift. H&H is 12.9 and 39.3, platelet count 250,000. Chemistry; potassium is low at 3 and glucose 151, nonfasting. Cardiac enzymes are negative. ProBNP is 883. TSH is 1.92. D-dimer is 4.73. DIAGNOSTIC DATA: Chest x-ray today shows worsening of left lower lobe airspace disease and increasing left pleural effusion, consistent with pneumonia. The patient had a lung scan earlier this year, on August 28, and it was with low probability for PE. ASSESSMENT: Recurrent pneumonia, recently failing Levaquin therapy inpatient; history of atrial flutter; essential hypertension; obesity; fibromyalgia; remote TIA; history of lumbago, lumbar radiculopathy; hypothyroidism; depression; and hypokalemia. PLAN: The patient will be admitted and placed on broad-spectrum IV antibiotics, supplemental O2, and pulmonary updrafts. Replace potassium. Further workup pending clinical course. We will check V/Q scan in light of elevated D-dimer. SHE DOES HAVE IODINE ALLERGY. TRANSINT:[id number] Voice Confirmation ID: [id number] DOCUMENT ID: [id number] PRADEEP MOREIRA MD at 1730 CC: [id number] DICTATION DATE: 12/30/171715 STONE REPAIRER: 12/30/17 181 ADM IN [place] [id number] [place] [id number]
--- NOTE | ~2017-12-30 | MORECARE ---
CASE MANAGEMENT DISCHARGE SUMMARY PATIENT: BEL CANTU UNIT: [id number] ADM DATE: 12/30/17 AGE: 67 : 50 SEX: F ROOM/BED: D.8939 AUTHOR: GUADALUPE GARCIA PHYSICIAN: REFERRING PHYSICIAN: NICHO LEMA MD DATE OF SERVICE: 12/30/17 Discharge Plan Patient Name: BEL CANTU Facility: [facility]:[place] : 1950 Planned Disposition: Home Anticipated Discharge Date: 01/01/18 Discharge Date: Expected LOS: 2 Initial Reviewer: [email or web address] Initial Review Date: 12/30/2017 Generated: 12/30/17 6:53 pm DCPIA - Discharge Planning Initial Assessment Updated by [email or web address]: Gertrude Mayfield on 12/30/17 5:51 pm * Is the patient Alert and Oriented? Yes * How many steps to enter\exit or inside your home? * PCP Dr. Lema * [facility] * Preadmission Environment Home Alone * ADLs Independent * Equipment Crutch * List name and contact numbers for known caregivers / representatives who currently or will assist patient after discharge: She does not have anyone that will be able to help her at home after discharge * Community resources currently utilized None * Additional services required to return to the preadmission environment? Yes * Can the patient safely return to the preadmission environment? Yes * Has this patient been hospitalized within the prior 30 days at any hospital? Yes Patient Name: BEL CANTU Page [id number] at 1753 All edits/amendments must be made on the electronic document DICTATION DATE: 12/30/171751 EVENT SALES ASSISTANT: BRYANT 12/30/171751 RPT#: [id number] DC DATE: STATUS: ADM IN [facility] [address] [place] [address] END OF REPORT
--- NOTE | ~2017-12-30 | MORECARE ---
CASE MANAGEMENT DISCHARGE SUMMARY PATIENT: BEL CANTU UNIT: [id number] ADM DATE: 12/30/17 AGE: 67 : 50 SEX: F ROOM/BED: D.0369 AUTHOR: GUADALUPE GARCIA PHYSICIAN: REFERRING PHYSICIAN: NICHO LEMA MD DATE OF SERVICE: 01/07/18 Discharge Plan Patient Name: BEL CANTU Facility: [facility]:[place] : 1950 Planned Disposition: Home Anticipated Discharge Date: 01/07/18 Discharge Date: Expected LOS: 8 Initial Reviewer: [email or web address] Initial Review Date: 12/30/2017 Generated: 01/07/18 5:55 pm Comments DCP- Discharge Planning Updated by [email or web address]: Piotr Ellington on 01/07/18 3:[address] Patient Name: BEL CANTU Encounter No: [id number] : 1950 Primary Insurance: MEDICARE A & B Anticipated DC Date: 01-07-2018 Planned Disposition: Home DCP follow-up note: CM RECEIVED DISCHARGE ORDER, MET WITH PT IN ROOM TO DISCUSS DISCHARGE NEEDS AND PLANNING. CM DISCUSSED AVAILABILITY OF HOME HEALTH, REHAB SERVICES AND MEDICAL EQUIPMENT. PT DENIES DISCHARGE NEEDS, DENIES NEED OF HOME HEALTH. PT IS DRIVING HERSELF HOME AT DISCHARGE TODAY. IMPORTANT MESSAGE FROM MEDICARE PROVIDED AND EXPLAINED. SHOE IRONER NURSE NOTIFIED. JUAN Peñaloza DCP- Discharge Planning Updated by [email or web address]: Gertrude Mayfield on 12/30/17 5:[address] Patient Name: BEL CANTU Admission Status: ER Accout number: [id number] Admission Date: 12-30-2017 : 1950 Admission Diagnosis: Attending: NICHO LEMA Current LOS: 1 Anticipated DC Date: 01-01-2018 Planned Disposition: Home Primary Insurance: MEDICARE A & B Discharge Planning Comments: CM met with patient to complete initial dc planning assessment. CM educated patient on the CM role and verbal consent given by patient to complete assessment. Patient lives at home alone and reports she is independent at home but has become weak due to being sick. CM discussed rehab versus home health at discharge since she is a readmission. Patient stated rehab is out of the question because she has cats and a dog and nobody to take care of them. The last sitter for her pets almost killed them. At discharge patient plans to return home alone and feels this is a safe discharge. She will think about home health. CM will continue to follow and will assist as needed with dc plans/needs. See below for more assessment information. Is the patient Alert and Oriented? Yes * How many steps to enter\exit or inside your home? 4 * PCP Dr. Lema * Pharmacy [facility] * Preadmission Environment Home Alone * ADLs Independent * Equipment Crutch * List name and contact numbers for known caregivers / representatives who currently or will assist patient after discharge: She does not have anyone that will be able to help her at home after discharge. * Community resources currently utilized None * Additional services required to return to the preadmission environment? Yes * Can the patient safely return to the preadmission environment? Yes * Has this patient been hospitalized within the prior 30 days at any hospital? Yes Glass Deposition Tender: Gertrude Mayfield DCPIA - Discharge Planning Initial Assessment Updated by [email or web address]: Gertrude Mayfield on 12/30/17 5:51 pm * Is the patient Alert and Oriented? Yes * How many steps to enter\exit or inside your home? * PCP Dr. Lema * Pharmacy [facility] * Preadmission Environment Home Alone * ADLs Independent * Equipment Crutch * List name and contact numbers for known caregivers / representatives who currently or will assist patient after discharge: She does not have anyone that will be able to help her at home after discharge * Community resources currently utilized None * Additional services required to return to the preadmission environment? Yes * Can the patient safely return to the preadmission environment? Yes * Has this patient been hospitalized within the prior 30 days at any hospital? Yes Coverage Notice Reviewer: [email or web address] - Piotr Ellington Notice Issued Date-Time: 01/07/2018 15:40 Notice Type: IM Discharge Notice Notice Delivered To: Patient Relationship to Patient: Parking Enforcement Manager Name: Delivery Method: HAND - Hand Delivered Elena Days: Prior Verbal Notification: Recipient Understood Notice: Yes Recipient Signature: Yes Med Rec Note Co-signed by Attending: Coverage Notice Comment: Last DP export: 12/30/17 5:07 Patient Name: BEL CANTU Page 24710 at 1656 All edits/amendments must be made on the electronic document DICTATION DATE: 01/07/181654 HEALTH AND SAFETY INSTRUCTOR: BRYANT 01/07/181654 RPT#: [id number] DC DATE: STATUS: ADM IN [facility] [address] [place] [address] END OF REPORT
--- NOTE | ~2017-12-30 | CN ---
PATIENT NAME:BEL KINNEY MEDICAL RECORD: [id number] : 50 LOCATION:D. D.2139 ADMIT DATE: 12/30/17 ACCOUNT: [id number] CONSULTING PHYSICIAN: MEERA WILKINS MD REFERRING PHYSICIAN: JESUS LEMA MD DATE OF CONSULTATION: 12/31/2017 CONSULT REQUESTING PHYSICIAN: Dr. Jesus Lema. REASON FOR CONSULTATION: Pneumonia. HISTORY OF PRESENT ILLNESS: Ms. Kinney is a 67-year-old female who was admitted in the last week of November for pneumonia. She was treated with IV Levaquin. The patient went home for the last 3-4 days. She has a fever and chills. She is coughing with yellow-colored sputum production. Also, worsening shortness of breath. The patient came back to the ER. Evaluation found out she has pneumonia, left lower lobe as well as left pleural effusion. REVIEW OF SYSTEMS: As in history of present illness. PAST MEDICAL HISTORY: 1. Recent left lower lobe pneumonia. 2. History of bradyarrhythmia. 3. History of atrial flutter with variable block. 4. History of transient ischemic attack. 5. Hypothyroidism. 6. Osteoarthritis. 7. Fibromyalgia. There is no history of congestive heart failure with diastolic dysfunction with an EF 60-65%. PAST SURGICAL HISTORY: 1. Hysterectomy. 2. Cholecystectomy. ALLERGIES: SHE IS ALLERGIC TO PENICILLIN, IODINE, ZINC, ASPIRIN, CHLORINE, AND MAN MADE SALT. PERSONAL AND SOCIAL HISTORY: Never smoked. She is a never drinker. FAMILY HISTORY: Noncontributory. PHYSICAL EXAMINATION: GENERAL: Now, the patient is lying comfortably in bed. She is very emotionally labile. VITAL SIGNS: The blood pressure is 134/70, pulse is 55, respirations are 18, temperature is 97.3, SpO2 is 96% on room air. HEENT: Conjunctivae are pink. Sclerae are not icteric. NECK: Supple, no JVD. CHEST: The chest excursion is minimal. There are crackle at the left base. No wheezing. HEART: Rhythm regular, normal sound, no murmur. ABDOMEN: Soft, bowel sounds present. No hepatosplenomegaly. RECTAL: Deferred. CONSULT REPORT [id number] BEL KINNEY EXTREMITIES: No cyanosis, no clubbing, no pedal edema. SKIN: Warm, normal turgor. CENTRAL NERVOUS SYSTEM: The patient is awake and alert. There are no obvious cranial nerve abnormality. The gait was not tested. LABORATORY DATA: D-dimer is positive. Chemistry: Sodium 142, potassium is 4, BUN is 21, creatinine 0.9. CBC: WBC 12.9, hemoglobin 12.6, hematocrit 38.4, the platelet count is 280. Chest radiograph there is a left lower lobe infiltrate with a left pleural effusion. IMPRESSION: 1. Pneumonia, left lower lobe, most likely hospital-acquired pneumonia. The patient failed inpatient Levaquin. 2. Left pleural effusion, most likely parapneumonic. 3. Elevated D-dimer, rule out pulmonary thromboembolism. 4. Hypokalemia that has been corrected. 5. Recurrent pneumonia. RECOMMENDATION: 1. Continue meropenem. Discontinue Zithromax, start on Levaquin and vancomycin IV to cover for Gram-negative rods as well as MRSA. 2. Check the CTA of the chest. 3. Premedicate the patient pre-CTA. 4. Mucinex DM. 5. Check IgG/IgM and IgA. 6. Follow up labs and chest radiograph. Dr. Lema, thank you for involving me in the care of Ms. Kinney. TRANSINT:[id number] Voice Confirmation ID: [id number] DOCUMENT ID: [id number] MEERA WILKINS MD CC: [id number] DICTATION DATE: 12/31/17 163 WET MIX OPERATOR: 01/01/18 0057 ADM IN [facility] [address] [place] [address]
[2017-12-30] MEDS ORDERED: ATIVAN0.5 MG PO (13:25)
[2017-12-30] MEDS ORDERED: IBUPROFEN800 MG PO (13:26)
[2017-12-30 13:59] LABS: BASOPHILS 0.1 % (0-2); EOSINOPHILS 0.3 % (0-7); HEMATOCRIT 39.3 % (36.0-48.0); HEMOGLOBIN 12.9 g/dL (12-16); IMMATURE GRANULOCYTES 0.1 % (0-5); LYMPHOCYTES 8.8 % (15-50); MCHC 32.8 g/dL (31.0-37.0); MCV 85.2 fL (80.0-100.0); MEAN PLATELET VOLUME 13.1 fL (7.4-10.4); MONOCYTES 6.6 % (2-11); NEUTROPHILS 84.1 % (40-80); RBC 4.61 10x6/uL (4.00-5.40); RDW 16.3 % (11.5-14.5); WBC 13.9 10x3/uL (4.8-10.8)
[2017-12-30 14:00] VITALS: BP 124/70
[2017-12-30 14:16] LABS: PLATELET COUNT 250 10x3/uL (130-400)
[2017-12-30 14:28] LABS: ALBUMIN 2.5 g/dL (3.4-5.0); ALKALINE PHOSPHATASE 75 U/L (46-116); ALT (SGPT) 16 U/L (10-68); BILIRUBIN - TOTAL 0.56 mg/dL (0.2-1.3); CALC OSMOLALITY 283 mosm/kg (275-300); CALCIUM 9.2 mg/dL (8.5-10.1); CHLORIDE - SERUM 103 mmol/L (98-107); CREATININE - SERUM 0.8 mg/dL (0.6-1.3); PROTEIN - SERUM 6.8 g/dL (6.4-8.2); SODIUM 140 mmol/L (136-145); UREA NITROGEN 17 mg/dL (7-18); eGFR NON AFRICAN AMERICAN 76 mL/min (90-120)
[2017-12-30 14:29] LABS: GLUCOSE 151 mg/dL (74-106)
[2017-12-30 14:40] LABS: CKMB 1.3 U/L (0.0-3.6); CREATINE KINASE 64 UL (21-215); PRO BNP 883 pg/mL (0-125); THYROID STIMULATING HORMONE 1.92 uIU/mL (0.36-3.74)
[2017-12-30 14:41] LABS: TROPONIN-I < 0.017 ng/mL (0.000-0.060)
[2017-12-30 14:57] VITALS: BP 128/78
[2017-12-30 15:53] VITALS: BP 128/78
[2017-12-30 16:27] VITALS: BP 128/67
[2017-12-30 18:08] VITALS: BP 120/72; BMI 37.6
[2017-12-30 20:42] VITALS: BP 133/61
[2017-12-31 01:36] VITALS: BP 109/58
[2017-12-31 06:04] VITALS: BP 108/54
[2017-12-31 06:30] LABS: BASOPHILS 0 % (0-2); EOSINOPHILS 0 % (0-7); HEMATOCRIT 38.4 % (36.0-48.0); HEMOGLOBIN 12.6 g/dL (12-16); IMMATURE GRANULOCYTES 0.3 % (0-5); LYMPHOCYTES 8.9 % (15-50); MCH 28.1 pg (26.0-34.0); MCHC 32.8 g/dL (31.0-37.0); MCV 85.7 fL (80.0-100.0); MEAN PLATELET VOLUME 13.3 fL (7.4-10.4); MONOCYTES 2.6 % (2-11); NEUTROPHILS 88.2 % (40-80); PLATELET COUNT 280 10x3/uL (130-400); RBC 4.48 10x6/uL (4.00-5.40); RDW 16.2 % (11.5-14.5); WBC 12.9 10x3/uL (4.8-10.8)
[2017-12-31 06:43] LABS: ANION GAP 14.3 mmol/L (8-16); CALCIUM 9.5 mg/dL (8.5-10.1); CARBON DIOXIDE 27.7 mmol/L (21.0-32.0); CREATININE - SERUM 0.9 mg/dL (0.6-1.3)
[2017-12-31 09:15] VITALS: BP 152/66
[2017-12-31 11:05] VITALS: BP 168/69
[2017-12-31 13:17] VITALS: Ht 157.5 cm; Wt 84.4 kg
[2017-12-31 14:42] VITALS: BP 134/70
[2017-12-31 21:22] VITALS: BP 125/78
[2018-01-01 01:19] VITALS: BP 132/69
[2018-01-01 05:03] LABS: ANION GAP 17.3 mmol/L (8-16); CALCIUM 9.3 mg/dL (8.5-10.1); CARBON DIOXIDE 26.9 mmol/L (21.0-32.0); POTASSIUM - SERUM 4.2 mmol/L (3.5-5.1)
[2018-01-01 05:27] LABS: BASOPHILS 0.1 % (0-2); EOSINOPHILS 0 % (0-7); HEMATOCRIT 43.4 % (36.0-48.0); HEMOGLOBIN 13.9 g/dL (12-16); IMMATURE GRANULOCYTES 0.4 % (0-5); LYMPHOCYTES 6.7 % (15-50); MCH 27.3 pg (26.0-34.0); MCV 85.3 fL (80.0-100.0); MEAN PLATELET VOLUME 12.9 fL (7.4-10.4); MONOCYTES 2.6 % (2-11); NEUTROPHILS 90.2 % (40-80); PLATELET COUNT 263 10x3/uL (130-400); RBC 5.09 10x6/uL (4.00-5.40); RDW 16.3 % (11.5-14.5); WBC 19.8 10x3/uL (4.8-10.8)
[2018-01-01 06:11] VITALS: BP 137/71
[2018-01-01 07:56] VITALS: BP 122/74
[2018-01-01 11:03] VITALS: BP 123/57
[2018-01-01 15:29] VITALS: BP 128/64
[2018-01-01 20:00] VITALS: BP 140/85
[2018-01-02 00:46] VITALS: BP 123/75
[2018-01-02 04:00] VITALS: BP 123/68
[2018-01-02 06:09] LABS: BASOPHILS 0 % (0-2); EOSINOPHILS 0 % (0-7); HEMATOCRIT 39.1 % (36.0-48.0); HEMOGLOBIN 12.6 g/dL (12-16); IMMATURE GRANULOCYTES 0.7 % (0-5); LYMPHOCYTES 11.5 % (15-50); MCH 27.7 pg (26.0-34.0); MCHC 32.2 g/dL (31.0-37.0); MCV 85.9 fL (80.0-100.0); MEAN PLATELET VOLUME 12.1 fL (7.4-10.4); MONOCYTES 7.1 % (2-11); NEUTROPHILS 80.7 % (40-80); PLATELET COUNT 339 10x3/uL (130-400); RBC 4.55 10x6/uL (4.00-5.40); RDW 16.4 % (11.5-14.5); WBC 22.7 10x3/uL (4.8-10.8)
[2018-01-02 06:17] LABS: IMMUNOGLOBULIN A 373 mg/dL (87-352); IMMUNOGLOBULIN M 177 mg/dL (26-217)
[2018-01-02 06:17] LABS: ANION GAP 12.8 mmol/L (8-16); CALCIUM 8.8 mg/dL (8.5-10.1); CARBON DIOXIDE 29.1 mmol/L (21.0-32.0); CREATININE - SERUM 0.9 mg/dL (0.6-1.3); POTASSIUM - SERUM 3.9 mmol/L (3.5-5.1); VANCOMYCIN - TROUGH 45.3 ug/mL (10.0-20.0)
[2018-01-02 07:56] VITALS: BP 141/69
[2018-01-02 07:58] LABS: APTT 29.5 SECONDS (22.8-39.4); INR 1.05 (0.85-1.17); PROTIME 13.3 SECONDS (11.6-15.0)
[2018-01-02 10:46] VITALS: BP 147/67
[2018-01-02 14:49] VITALS: BP 152/71
[2018-01-02 20:00] VITALS: BP 154/63
[2018-01-03] VITALS (9 sets, daily range): BP systolic 114–162; BP diastolic 64–79
[2018-01-03 05:28] LABS: BASOPHILS 0.1 % (0-2); EOSINOPHILS 1.4 % (0-7); HEMOGLOBIN 12.7 g/dL (12-16); IMMATURE GRANULOCYTES 0.8 % (0-5); LYMPHOCYTES 30.8 % (15-50); MCH 27.7 pg (26.0-34.0); MCHC 31.8 g/dL (31.0-37.0); MCV 87.1 fL (80.0-100.0); MEAN PLATELET VOLUME 12.1 fL (7.4-10.4); MONOCYTES 9.7 % (2-11); NEUTROPHILS 57.2 % (40-80); RBC 4.59 10x6/uL (4.00-5.40); RDW 16.4 % (11.5-14.5)
[2018-01-03 05:47] LABS: PLATELET COUNT 251 10x3/uL (130-400); WBC 10.8 10x3/uL (4.8-10.8)
[2018-01-03 05:58] LABS: ANION GAP 11.5 mmol/L (8-16); CALCIUM 8.7 mg/dL (8.5-10.1); CARBON DIOXIDE 31.8 mmol/L (21.0-32.0); POTASSIUM - SERUM 4.3 mmol/L (3.5-5.1)
[2018-01-03 06:16] LABS: IGG SUBCLASS 1 425 mg/dL (248-810); IGG SUBCLASS 2 203 mg/dL (130-555); IGG SUBCLASS 3 94 mg/dL (15-102); IGG SUBCLASS 4 14 mg/dL (2-96)
[2018-01-03 13:29] LABS: PROTEIN - BODY FLUID 3.8 G/DL
[2018-01-03 13:58] LABS: NEUT - BF 8 %
[2018-01-03 13:59] LABS: MACROPHAGES BF 35 %; MESOTHELIALS BF 22 %
[2018-01-04 00:56] VITALS: BP 117/71
[2018-01-04 06:21] VITALS: BP 112/61
[2018-01-04 06:36] LABS: BASOPHILS 0.2 % (0-2); EOSINOPHILS 1.1 % (0-7); HEMATOCRIT 43.5 % (36.0-48.0); HEMOGLOBIN 14.1 g/dL (12-16); IMMATURE GRANULOCYTES 1.2 % (0-5); LYMPHOCYTES 24.2 % (15-50); MCHC 32.4 g/dL (31.0-37.0); MCV 86.3 fL (80.0-100.0); MONOCYTES 9.3 % (2-11); PLATELET COUNT 288 10x3/uL (130-400); RBC 5.04 10x6/uL (4.00-5.40); RDW 16.3 % (11.5-14.5); WBC 11.2 10x3/uL (4.8-10.8)
[2018-01-04 06:57] LABS: CREATININE - SERUM 0.9 mg/dL (0.6-1.3)
[2018-01-04 08:03] VITALS: BP 113/64
[2018-01-04 11:52] VITALS: BP 120/64
[2018-01-04 13:17] LABS: FUNGUS STAIN Final report (())
[2018-01-04 15:58] VITALS: BP 118/66
[2018-01-04 20:00] VITALS: BP 87/49
[2018-01-04 20:08] LABS: ACID FAST SMEAR Negative (()); AFB SPECIMEN PROCESSING Not Indicated (())
[2018-01-05] VITALS: BP 118/68
[2018-01-05 06:04] VITALS: BP 123/60
[2018-01-05 06:39] LABS: ANION GAP 7.6 mmol/L (8-16); CALCIUM 8.7 mg/dL (8.5-10.1); CARBON DIOXIDE 33.3 mmol/L (21.0-32.0); POTASSIUM - SERUM 3.9 mmol/L (3.5-5.1)
[2018-01-05 06:40] LABS: BASOPHILS 0.2 % (0-2); EOSINOPHILS 2.2 % (0-7); HEMATOCRIT 41.6 % (36.0-48.0); HEMOGLOBIN 13.4 g/dL (12-16); IMMATURE GRANULOCYTES 2.5 % (0-5); LYMPHOCYTES 28.6 % (15-50); MCH 27.9 pg (26.0-34.0); MCHC 32.2 g/dL (31.0-37.0); MCV 86.5 fL (80.0-100.0); MEAN PLATELET VOLUME 12.1 fL (7.4-10.4); MONOCYTES 8.3 % (2-11); NEUTROPHILS 58.2 % (40-80); PLATELET COUNT 257 10x3/uL (130-400); RBC 4.81 10x6/uL (4.00-5.40); RDW 16.4 % (11.5-14.5)
[2018-01-05 08:00] VITALS: BP 130/71; BP 143/68
[2018-01-05 11:26] VITALS: BP 109/64
[2018-01-05 16:02] VITALS: BP 128/74
[2018-01-05 20:12] VITALS: BP 105/67
[2018-01-06 00:20] VITALS: BP 120/76
[2018-01-06 04:49] VITALS: BP 112/64
[2018-01-06 08:52] VITALS: BP 124/66
[2018-01-06 11:02] VITALS: BP 139/64
[2018-01-06 15:44] VITALS: BP 121/89
[2018-01-06 21:59] VITALS: BP 165/70
[2018-01-07 02:24] VITALS: BP 123/78
[2018-01-07 05:45] VITALS: BP 107/57
[2018-01-07 10:11] LABS: ANA REFLEX - DIRECT Negative (Negative)
[2018-01-07 11:08] VITALS: BP 115/58
[2018-01-07 16:16] VITALS: BP 141/71
[2018-01-09 15:25] LABS: FUNGUS MYCOLOGY CULTURE Preliminary report (())
== END 2018-01-07 17:07 | disposition home or self-care (01) | DRG 291 ==
LOC: D.ER 13:17 → D.M2 16:42
PROVIDERS: Emergency Medicine; Family Medicine; Internal Medicine Pulmonary Disease; Radiology Vascular & Interventional Radiology; Specialist
PROC: 0W9B3ZZ Drainage of Left Pleural Cavity, Percutaneous Approach (ICD-10-PCS; principal; 2018-01-03 10:51)
DX: I11.0 Hypertensive heart disease with heart failure (principal); I50.21 Acute systolic (congestive) heart failure; J18.9 Pneumonia, unspecified organism; I48.92 Unspecified atrial flutter; J90 Pleural effusion, not elsewhere classified; E03.9 Hypothyroidism, unspecified; M19.90 Unspecified osteoarthritis, unspecified site; Z78.0 Asymptomatic menopausal state; E66.9 Obesity, unspecified; M79.7 Fibromyalgia; F32.9 Major depressive disorder, single episode, unspecified; E87.6 Hypokalemia; Y95 Nosocomial condition; Z86.73 Personal history of transient ischemic attack (TIA), and cerebral infarction without residual deficits

== ENCOUNTER 2018-02-12 11:01 | Outpatient (CLI) | payer MEDICARE ==
[~2018-02-12] VITALS: Ht 157.5 cm; Wt 95.7 kg
--- NOTE | ~2018-02-12 | HEMODYNAMI ---
PATIENT:BEL CANTU MEDICAL RECORD: [id number] : 50 LOCATION:DEZ ADMISSION DATE: 02/12/18 Generatedon:02/12/201814:19 Patient name: BEL CANTU Patient #: [id number] SSN: DO B: 1950 Date of study: 02/12/2018 Page: Of Hemodynamic Procedure Report Patient Data Patient Demographics Procedure consent was obtained First Name: BEL Gender: Female Last Name: PEPE : 1950 Middle Initial: WILLIAN Age: 67 year(s) Patient #: [id number] Race: Unknown Additional ID: [id number] Contact details Address: [address] [place] [address] State: [place] City: [facility] Zip code: [address] Past Medical History Allergies Allergen Reaction Date Comments Reported Aspirin 02/12/2018 Iodine 02/12/2018 Penicillins 02/12/2018 Admission Admission Data Admission Date: 02/12/2018 Admission Time: 11:01 Procedure Procedure Types Cath Procedure Diagnostic Procedure PPM/ICD PPM Dual Implant Sedation Charges Moderate Sedation up to 15 minutes Procedure Description Procedure Date Procedure Date: 02/12/2018 Procedure Start Time: 13:52 Procedure End Time: 14:19 Procedure Staff Name Function Hubert Quach MD Performing Physician Devin Pradhan MD Assisting physician Luciana Ledesma RT Monitor Luma Li RN Nurse Joaquin Sanches RT Scrub Procedure Data Cath Procedure Fluoroscopy Diagnostic fluoroscopy Total fluoroscopy Time: 1.1 time: 1.1 min min Diagnostic fluoroscopy Total fluoroscopy dose: 40 dose: 40 mGy mGy Estimated blood loss: 5 ml Procedure Medications Medication Administration Route Dosage Oxygen etCO2 Nasal cannula 2 l/min Vancomycin I.V.P.B 1 g Vancomycin Topical 1 g Irrigation Lidocaine 1% added to field 20 Versed I.V. 1 mg Fentanyl I.V. 50 mcg Versed I.V. 1 mg Fentanyl I.V. 50 mcg Hemodynamics Rest Heart Rate: 56 (bpm) Snapshots Pre Cath Intra NCS Post Cath Vital Signs Time Heart Resp SPO2 etCO2 NIBP (mmHg) Rhythm Pain Sedation Rate (ipm) (%) (mmHg) Status Level (bpm) 13:18:43 55 21 98 0 195/85(148) SB 0 (11) 10(A) , No pain 13:23:40 46 14 95 0 169/77(121) SB 0 (11) 10(A) , No pain 13:28:33 51 11 93 35.3 155/71(118) SB 0 (11) 10(A) , No pain 13:33:13 93 25 98 31.5 160/98(117) A-Flutter 0 (11) 10(A) , No pain 13:37:48 105 15 98 36.8 147/101(128) A-Flutter 0 (11) 10(A) , No pain 13:42:24 95 15 98 35.3 164/108(143) A-Flutter 0 (11) 10(A) , No pain 13:46:59 114 15 98 36 141/92(118) A-Flutter 0 (11) 10(A) , No pain 13:51:31 110 17 95 36.8 140/92(118) A-Flutter 0 (11) 10(A) , No pain 13:56:02 102 18 97 36 163/113(151) A-Flutter 0 (11) 10(A) , No pain 14:00:42 110 30 94 29.3 160/116(137) A-Flutter 0 (11) 10(A) , No pain 14:05:21 102 26 94 30.8 158/107(140) A-Flutter 0 (11) 10(A) , No pain 14:10:00 104 18 95 30.8 176/118(144) A-Flutter 0 (11) 10(A) , No pain 14:16:10 107 17 96 33 158/114(145) A-Flutter 0 (11) 10(A) , No pain Medications Time Medication Route Dose Verified Delivered Reason Notes Effectiv eness by by 13:25:18 Oxygen etCO2 2 Hubert Ge used for Nasal l/min [facility] cannula 13:25:28 Vancomycin I.V.P.B 1 g Hubert Ge used for [facility] 13:25:39 Vancomycin Topical 1 g Hubert Ge used for Irrigation [facility] Li RN procedure 13:25:48 Lidocaine added 20ml Hubert Beltran for local 1% to vial [facility] Pradhan MD anesthetic field 13:49:46 Versed I.V. 1 mg Hubert Espinozaie for [facility] RN sedation 13:49:52 Fentanyl I.V. 50 Hubert Espinozaie for [facility] RN sedation 13:57:17 Versed I.V. 1 mg Hubert Espinozaie for [facility] RN sedation 13:57:21 Fentanyl I.V. 50 Hubert Espinozaie for [facility] RN sedation Procedure Log Time Note 12:52:55 Time tracking: Regular hours (M-F 7:00 - 5:00) 12:53:00 Plan of Care:Hemodynamics will remain stable., Cardiac rhythm will remain stable., Comfort level will be maintained., Respiratory function will remain adequate., Patient/ family verbilizes understanding of procedure., Procedure tolerated without complication., Recovers from procedure without complications.. 12:59:17 Luciana Counts RT(R) sent for patient. Start room use. 13:09:17 Patient received from Pre/Post Procedure Room to CCL 3 Alert and oriented. Tansferred to table in Supine position. 13:09:18 Warm blankets applied, and fauzia hugger turned on for patient comfort. 13:09:18 Correct patient and procedure confirmed by team. 13:09:19 Signed procedure consent form obtained from patient. 13:09:20 ECG and BP/O2 sat monitors applied to patient. 13:15:47 Vital chart was started 13:19:21 Full Disclosure recording started 13:19:45 Baseline sample Acquired. 13:19:52 Rhythm: sinus bradycardia 13:20:14 H&P Date Dictated: 01/29/2018 Within 30 days and on chart., H&P Addendum completed by physician on day of procedure. (MUST COMPLETE FOR ALL OUTPATIENTS). 13:20:15 Pre-procedure instructions explained to patient. 13:20:15 Pre-op teaching completed and patient verbalized understanding. 13:20:18 Family unavailable. 13:20:19 Patient NPO since Midnight. 13:20:33 Patient allergic to Aspirin 13:20:37 Patient allergic to Iodine 13:20:48 Patient allergic to Penicillins 13:21:01 Is the patient allergic to Iodine/contrast media? Yes. 13:21:02 Was the patient premedicated? No 13:21:04 Is patient on blood thinner?Yes 13:21:06 Patient diabetic? No. 13:21:11 Previous problem with sedation/anesthesia? No ? 13:21:12 Snore? Yes 13:21:13 Sleep apnea? No 13:21:14 Deviated septum? No 13:21:15 Opens mouth fully? Yes 13:21:16 Sticks out tongue? Yes 13:21:18 Airway obstruction? No ? 13:21:20 Dentures? No ? 13:21:26 Patient pain scale 0/10 ?. 13:21:32 IV patent on arrival in left forearm with 0.9% NaCl at [facility]. 13:21:34 Lab results completed and on chart. 13:21:43 Left chest area was prepped with chlora-prep and draped in sterile fashion 13:21:46 Alarms reviewed by R. N. 13:21:46 Sharps counted by scrub and verified by R.N. 13:21:55 Use device set CAROLYNN PPM 13:21:59 2-0 Ticron Multipack ([id number]) opened to sterile field. 13:21:59 3-0 Vicryl Single Pack [id number] opened to sterile field. 13:22:00 5-0 Monocryl PS2 [id number] opened to sterile field. 13:22:00 Cautery Tip Tunnel Worker opened to sterile field. 13:22:01 Cautery Pushbutton Pencil opened to sterile field. 13:22:02 Mepilex Dressing (619096) opened to sterile field. 13:22:20 [facility] healthcare representative Thaddeus Maza present for procedure. 13:22:31 Pre sharps counted by scrub and verified by RN: Sutures: 7; Sponges: 5; Stick needles: 2; Skin needles: 2; Blade: 1; Cautery: 1 13:22:33 Grounding pad site Left thigh. 13:22:35 Grounding pad site free from injury. 13:25:18 Oxygen 2 l/min etCO2 Nasal cannula was administered by Luma Li RN; used for procedure; 13:25:28 Vancomycin 1 g I.V.P.B was administered by Luma Li RN; used for procedure; 13:25:39 Vancomycin Irrigation 1 g Topical was administered by Luma Li RN; used for procedure; 13:25:48 Lidocaine 1% 20ml vial added to field was administered by Devin Pradhan MD; for local anesthetic; 13:28:14 PLAVIX LAST DOSE 02/09/18 13:34:58 Physician paged 13:36:00 Baseline sample Acquired. 13:39:56 Physician responded to page. 13:46:51 Medtronic Advisa MRI PPM Dual Generator [id number] opened to sterile field. 13:46:52 Medtronic 4574-45 PPM Lead opened to sterile field. 13:46:53 Medtronic 4074-52 PPM Lead opened to sterile field. 13:48:29 DR PRADHAN SCRUBBED IN 13:48:30 Final Timeout: patient, procedure, and site verified with staff and physician. All members of the team are in agreement. 13:48:34 Left chest site verified by team. 13:48:38 Physical assessment completed. ASA score P 2 - A patient with mild systemic disease as per Hubert Quach MD. 13:48:41 Sedation plan: IV Moderate Sedation Medication:Versed, Fentanyl 13:49:46 Versed 1 mg I.V. was administered by Luma Li RN; for sedation; 13:49:52 Fentanyl 50 mcg I.V. was administered by Luma Li RN; for sedation; 13:52:22 Procedure started. 13:52:42 Lidocaine 1% was administered to left subclavicular area by Devin Pradhan MD . 13:54:02 Incision made to left subclavicular area. 13:54:31 Generator pocket made/opened. 13:56:20 DR RAMOS SCRUBBED IN 13:57:17 Versed 1 mg I.V. was administered by Luma Li RN; for sedation; 13:57:21 Fentanyl 50 mcg I.V. was administered by Luma Li RN; for sedation; 13:58:18 Left subclavian vein accessed with 7Fr Peel Away Sheath. 13:58:23 Ventricular lead inserted and advanced. 13:58:26 Left subclavian vein accessed with 7Fr Peel Away Sheath. 13:58:29 Atrial lead inserted and advanced. 14:01:05 Ventricular lead positioned. 14:01:43 Ventricular lead tested. 14:04:09 Atrial lead positioned. 14:04:28 Atrial lead tested. 14:04:34 Peel-a-way sheath was split and removed. 14:04:35 Peel-a-way sheath was split and removed. 14:04:48 Atrial lead attachment was completed with 2-0 ticron. 14:04:54 Ventricular lead attachment was completed with 2-0 ticron. 14:06:20 PPM Dual was attached to lead(s) and inserted into pocket. 14:06:31 DR QUACH SCRUBBED OUT 14:08:26 Generator was sutured in place with 2-0 ticron. 14::24 Parameters-- Generator: Mode: AAIR<=>DDDR. Lower Rate: 60bpm. Upper Rate: 120bpm. 14:09:44 Parameters--Ventricular P/R Wave: 10.4mV. Current: 0.1mA; Threshold: 0.3V; Impedence: 1477OHMS. 14:10:06 Parameters--Atrial P/R Wave: 1.8mV. Current: 0.1mA; Threshold: AFV; Impedence: 609OHMS. 14:13:36 Subcutaneous closure was completed with 3-0 vicryl plus. 14:14:05 Skin closure was completed with 5-0 monocryl. 14:14:10 Lt Chest incision was dressed with Mepilex dressing. 14:14:15 Procedure ended.(Physican Out) 14:14:18 Fluoroscopy time 01.10 minutes. 14:14:26 Fluoroscopy dose: 40 mGy 14:14:26 Flurop Dose total: 40 14:14:28 Sharps counted by scrub and verified by R.N. 14:14:44 Post sharps counted by scrub and verified by RN: Sutures: 7; Sponges: 5; Stick needles: 2; Skin needles: 2; Blade: 1; Cautery: 1 14:14:55 Insertion/operative site no bleeding no hematoma. 14:15:04 Post Chest area:stable, clean and dry 14:15:05 Post Procedure Pulses reassessed and unchanged 14:15:08 Post-procedure physical assessment completed. ASA score P 2 - A patient with mild systemic disease as per Hubert Quach MD. 14:15:10 Post procedure rhythm: sinus rhythm 14:15:22 Estimated blood loss: 5 ml 14:15:23 Post procedure instruction explained to patient.Patient verbalizes understanding. 14:15:24 Patient needs reinforcement of post procedure teaching. 14:15:57 Procedure type changed to Cath procedure, Diagnostic procedure, PPM/ICD, PPM Dual Implant, Sedation Charges, Moderate Sedation up to 15 minutes 14:16:02 See physician's report for complete and final results. 14:16:24 Immobilizer Large opened to sterile field. 14:16:42 Procedure and supply charges have been captured, reviewed, submitted and are correct. 14:18:06 Report given to PCU. 14:18:10 Patient transfered to PCU with Bed. 14:19:22 Procedure ended. 14:19:22 Full Disclosure recording stopped 14:19:26 Vital chart was stopped 14:19:27 End room use (Document Last) Device Usage Item Name Manufacture Quantity Catalog Hospital Part Current Minimal Lot# / Number Charge Number Stock Stock Serial# Code 2-0 Ticron Ethicon 1 [id number] [id number] 5 Multipack ([id number]) 3-0 Vicryl Ethicon 1 [id number] [id number] [id number] 5 Single Pack [id number] 5-0 Monocryl Ethicon 1 [id number] 014182 295935 854662 5 PS2 Y495G Cautery Tip Microtek 1 [id number] [id number] [id number] 5 [employer] Cautery Microtek 1 [id number] 64168 148545 5 Push[employer] Pencil Mepilex Cardinal 1 [id number] 660323 [id number] [id number] [address] [facility] ([id number]) Medtronic Medtronic 1 [id number] 515902 098306 5 [id number] Advisa MRI EXP. PPM Dual 2019-06-14 Generator [id number] Medtronic Medtronic 1 4574-45 050174 [id number] 5 [id number] 4574-45 PPM EXP. Lead 2019-10-02 Medtronic Medtronic 1 4074-52 811233 [id number] 5 [id number] 4074-52 PPM EXP. Lead 2019-09-07 Immobilizer Cardinal 1 [id number] 5 [facility] Signature Audit Davis Stage Time Signature Unsigned Intra-Procedure 02/12/2018 Luciana 2:19:38 PM Counts RT(R) Signatures Monitor : Luciana Signature : Counts RT Date : Time : [address] [place] [address]
--- NOTE | ~2018-02-12 | OP ---
PATIENT NAME: BEL CANTU MEDICAL RECORD: [id number] :50 LOCATION:D.M2 D.2 ADMISSION DATE: SURGEON: GERMAN PRADHAN MD DATE OF OPERATION: 02/12/2018 PREOPERATIVE DIAGNOSES: 1. Paroxysmal atrial fibrillation. 2. Hypertension. 3. Hypercholesterolemia. 4. Fibromyalgia. POSTOPERATIVE DIAGNOSES: 1. Paroxysmal atrial fibrillation. 2. Hypertension. 3. Hypercholesterolemia. 4. Fibromyalgia. PROCEDURE: 1. Left subclavian vein dual-lead pacemaker placement. 2. Fluoroscopic interpretation. SURGEON: German Pradhan MD CO-SURGEON: Hubert Rojas MD REPORT OF PROCEDURE: The patient's left chest was prepped and draped in sterile fashion. A total of 20 mL of 1% lidocaine was infused into the subcutaneous tissues. A skin incision was made on the left superior lateral chest and a subcutaneous pouch was made over the pectoral fascia. A needle was used to cannulate the left subclavian vein times 2 and guidewires were advanced with ease. Fluoro was used to note that the wires were in good position. A dilator trocar devices were placed over the wires and the wires and dilators were removed. The leads were inserted in through the trocars. At this point, Dr. Rojas positioned the leads appropriately in atrium and ventricle. Once these were noted to be functioning appropriately, then they were sutured into place with 0 Ti-Cron. The leads were then affixed to the pacemaker and the pacemaker was placed in the subcutaneous pouch. This was sutured down to the pectoral fascia using a single interrupted 0 Ti-Cron. The wound was irrigated out with antibiotic solution. We then reapproximated the subcutaneous tissues with interrupted 3-0 Vicryls and the skin was closed with running subcutaneous 5-0 Monocryl. COMPLICATIONS: None. CONDITION: Stable. ANESTHESIA: Local MAC. BLOOD LOSS: Minimal. TRANSINT:[id number] Voice Confirmation ID: [id number] DOCUMENT ID: [id number] OPERATIVE REPORT [id number] BEL CANTU CHRISTIAN MD CC: [id number] DICTATION DATE: 02/12/18 141 PHYSICIAN REPRESENTATIVE: 02/12/18 1620 [facility] [address] [place] [address]
--- NOTE | ~2018-02-12 | OP ---
PATIENT NAME: BEL CANTU MEDICAL RECORD: [id number] :50 LOCATION:D.M2 D.2 ADMISSION DATE: SURGEON: AURELIA QUACH MD DATE OF OPERATION: 02/12/2018 PROCEDURE: Lead portion of permanent pacemaker placement. INDICATION: Sick sinus syndrome, PAF, damian escape rhythms. SURGEON: Devin Jane MD DESCRIPTION OF PROCEDURE: After right subclavian was cannulated via modified Seldinger technique via Dr. Jane, first, under fluoroscopic guidance, I placed RV lead in RV apex without difficulty. After adequate thresholds and R waves were obtained, then under fluoroscopic guidance, I placed the right atrial lead in right atrial appendage without difficulty. After adequate fibrillatory waves were obtained, the leads were attached to the appropriate pole in the generator and pocket was closed via Dr. Jane. IMPRESSION: Successful lead portion of permanent pacemaker placement on Bel Cantu. COMPLICATIONS: None. ESTIMATED BLOOD LOSS: Minimal. TRANSINT:[id number] Voice Confirmation ID: [id number] DOCUMENT ID: [id number] AURELIA QUACH MD CC: [id number] DICTATION DATE: 02/12/18 1418 SUPERVISOR SEWING ROOM: 02/12/18 1840 [facility] [address] [place] [id number]
[~2018-02-12 11:01] MED LIST changes: +IBUPROFEN800 MG PO
[2018-02-12] MEDS ORDERED: POTASSIUM CHLOR8 ME1 PO (11:25)
[2018-02-12] MEDS ORDERED: COZAAR100 MG PO (11:25)
[2018-02-12] MEDS ORDERED: ASCORBIC ACID500 MG PO (11:26)
[2018-02-12 11:35] VITALS: BP 179/85; BMI 38.5
[2018-02-12 11:46] LABS: HEMOGLOBIN 13.8 g/dL (12-16); MCH 28.5 pg (26.0-34.0); MCHC 32.1 g/dL (31.0-37.0); MCV 88.8 fL (80.0-100.0); MEAN PLATELET VOLUME 13.1 fL (7.4-10.4); RBC 4.84 10x6/uL (4.00-5.40); RDW 16.6 % (11.5-14.5); WBC 10.2 10x3/uL (4.8-10.8)
[2018-02-12 11:57] LABS: APTT 30.8 SECONDS (22.8-39.4); CALC OSMOLALITY 285 mosm/kg (275-300); CALCIUM 9.6 mg/dL (8.5-10.1); CARBON DIOXIDE 28.6 mmol/L (21.0-32.0); CHLORIDE - SERUM 105 mmol/L (98-107); CREATININE - SERUM 0.7 mg/dL (0.6-1.3); GLUCOSE 99 mg/dL (74-106); INR 0.98 (0.85-1.17); PROTIME 12.5 SECONDS (11.6-15.0); SODIUM 143 mmol/L (136-145); UREA NITROGEN 16 mg/dL (7-18); eGFR NON AFRICAN AMERICAN 88 mL/min (90-120)
[2018-02-12 14:51] VITALS: Ht 157.5 cm; Wt 95.7 kg
[2018-02-12 16:40] VITALS: BP 142/86
[2018-02-12 20:48] VITALS: BP 144/74
[2018-02-13 01:06] VITALS: BP 141/75
[2018-02-13 05:11] VITALS: BP 138/77
[2018-02-13 07:57] VITALS: BP 146/77
== END 2018-02-13 12:34 | disposition home or self-care (01) ==
LOC: D.CATH 11:01 → D.M2 14:37 → D.CATH 02-13 12:34
PROVIDERS: Internal Medicine Interventional Cardiology
DX: I49.5 Sick sinus syndrome (principal); I48.0 Paroxysmal atrial fibrillation; I10 Essential (primary) hypertension; E78.00 Pure hypercholesterolemia, unspecified; M79.7 Fibromyalgia; Z01.812 Encounter for preprocedural laboratory examination

== ENCOUNTER → 2018-05-31 12:37 | Outpatient (CLI) | payer MEDICARE ==
[2018-02-12 14:51] VITALS: BMI 36.6
[~2018-05-31 12:37] MED LIST changes: +ASCORBIC ACID500 MG PO; +POTASSIUM CHLOR8 ME1 PO
== END | disposition home or self-care (01) ==
LOC: D.RAD 12:37
PROVIDERS: ATTEND Internal Medicine Pulmonary Disease
DX: Z87.01 Personal history of pneumonia (recurrent) (principal)

== ENCOUNTER → 2019-12-23 10:55 | Outpatient (CLI) | payer MEDICARE ==
[2018-02-12 14:51] VITALS: BMI 36.6
--- NOTE | ~2019-12-23 | EC ---
PATIENT:BEL CANTU DATE OF SERVICE: 12/23/19 SEX: F MEDICAL RECORD: [id number] DATE OF : 50 LOCATION:D.FORMERLY [facility] AGE OF PATIENT: 69 ADMISSION DATE: 12/23/19 REFERRING PHYSICIAN: INTERPRETING PHYSICIAN: AURELIA QUACH MD ECHOCARDIOGRAM REPORT ECHO CHARGES 4 ECHO COMPLETE Date: 12/23/19 CLINICAL DIAGNOSIS: HX OF ATRIAL FIB/LVH/PACEMAKER ASSESS LVH/EF/VALVES ECHOCARDIOGRAPHIC MEASUREMENTS (adult normal given) AC root (d.<3.7cm) 3.8 cm LV Septum d (<1.2 cm> 1.6 cm Valve Excursion 1.5 cm LV Septum (systole) 1.7 cm Left Atria (s.<4.0cm> 4.0 cm LVPW d(<1.2cm) 1.7 cm RV (d.<2.3cm) 3.1 cm LVPW (sytole) 1.8 cm LV diastole(<5.6CM) 3.7 cm MV E-F(>70mm/sec) cm LV systole 2.3 cm LVOT Diameter 1.9 cm MV exc.(>10mm) 1.3 cm Est.ejection fraction (50-75%) % DOPPLER: LVIT cm/sec A 53.0 cm/sec E 41.0 cm/sec LA cm/sec RVSP 31 mmHg LVOT 87 cm/sec AOP1/2T m/s Asc. Ao 102 cm/sec RVOT 63 cm/sec RA cm/sec PA 39 cm/sec AV Gradient Peak 4.20 mmHg AV Mean 2.48 mmHg AV Area 2.3 cm MV Gradient Peak 1.55 mmHg MV Mean 0.55 mmHg MV Area cm COMMENTS: [employer] Storage Clerk: 2 CAROLINA GASPAR Osteology Teacher: 3 Dr. Rojas TAPE# PACS Pericardial Effusion N DATE OF SERVICE: Adequate 2D, color flow imaging, spectral Doppler, and M-Mode. LVH is present. LV internal dimensions are normal. Wall motion normal. EF greater than or equal to 55%. Aortic valve is sclerotic. No evidence of stenosis by Doppler interrogation. Left atrium is normal at 4.0 cm. Mitral valve shows no prolapse. Trace MR. Right-sided chamber grossly normal. Trace TR. TRANSINT:[id number] Voice Confirmation ID: [id number] DOCUMENT ID: [id number] ECHOCARDIOGRAM REPORT [id number] BEL CANTU GREGORY A MD CC: [id number] DICTATION DATE: 12/23/19 1539 [employer]: 12/24/19 0034 DEP CLI 12/23/19 [place] [id number]
== END | disposition home or self-care (01) ==
LOC: D.HCCECHO 10:55
PROVIDERS: ATTEND Internal Medicine Interventional Cardiology
DX: I48.91 Unspecified atrial fibrillation (principal)

== ENCOUNTER → 2020-06-23 13:05 | Outpatient (CLI) | payer MEDICARE ==
[2020-04-07 14:38] VITALS: BMI 42.1
[~2020-06-23 13:05] MED LIST changes: +ALDACTONE25 MG PO; +BETAPACE160 MG PO; +ELIQUIS5 MG PO
== END | disposition home or self-care (01) ==
LOC: D.HCCECHO 13:05
PROVIDERS: ATTEND Internal Medicine Interventional Cardiology
DX: I42.9 Cardiomyopathy, unspecified (principal)